=== PATIENT | male | born 1935 | race Caucasian/White ===

== ENCOUNTER 2017-06-13 19:47 | Emergency (ER) | payer MEDICARE, OTHER ==
[2016-04-13 16:22] VITALS: Wt 99.8 kg
[~2017-06-13 19:47] MED LIST: ACET-2007 PO; ACET-2031 PO; ALB18R INH; ALBU8.5H IH; AMIN30LI PO; AMLO2.5T74 PO; ASCO-182 PO; ASCO-440 PO; ASP81 PO; ASPI-870 PO; AZIT-1 PO; BET25 PO; CALC-949 PO; CALC600T72 PO; CEP500 PO; CEPH-13 PO; CEPH500C24 PO; CEPH500T7 PO; CIP500 PO; CITA-137 PO; CLO10 PO; DEXT1DRO15 OP; DOC100 PO; DOCU-416 PO; ERTA1VIA IVPB; ESC10 PO; FAM20 PO; FAMO20TA28 PO; FLU IM; FLUC100T35 PO; FLUC100T39 PO; FOLI-48 PO; HYDR-385 PO; IBUP-1671 PO; LEVO75TA73 PO; LEVO88TA42 PO; LIS10 PO; LISI5TAB25 PO; LOR1 PO; LOR5/325 PO; MAG-66 PO; MELA10TA7 PO; MELA1TAB9 PO; METO-218 PO; METO-253 PO; METO-257 PO; METO25TA93 PO; METO50TA PO; MUPI15CR10 TP; NABU-183 PO; NIT50 PO; NITR50CA35 PO; NYST15CR33 TP; NYST15PO4 TP; OMEG500C7 PO; OMEP-125 PO; OMEP-137 PO; OMEP-218 PO; OXYC5TAB38 PO; OXYGENHOME INH; PANT40TA65 PO; PHEN28OI TD; PHENA200 PO; PHYT100T4 PO; PNEU0.5D3 IM; POLY15DR5 OU; POLY500P2 PO; PRED1DRO2 OS; PRED20TA6 PO; PRED5DRO34 OP; ROP5 PO; ROPI0.5T25 PO; SERT-184 PO; TAM4 PO; TAMS0.4C70 PO; VALA500T63 PO; VALA500T66 PO; WARF-1 PO; WARF2.5T62 PO; WARF5TAB23 PO; [UNRECOGNIZED DRUG - CODE] OP; [UNRECOGNIZED DRUG - CODE] PO
--- NOTE | 2017-06-13 20:02 | ER Report ---
History and Physical Time Seen By : 20:02 HPI/ROS CHIEF COMPLAINT: Hematuria HISTORY OF PRESENT ILLNESS: 82-year-old male patient presents to emergency room with complaint of hematuria. Patient states that he's been having bleeding in his catheter bag that he noticed this morning when he got up. He states that it seemed to clear up throughout the day, and then this evening it seemed to get worse again. Patient states that he is also not been feeling well, has had some pressure type of discomfort around his rectum. He stated that it was worse after he had a bowel movement this morning, however after he had a bowel movement this afternoon there is no change. Patient denies having any fevers, chills. He states that he has not changed his medications any. Patient is currently taking warfarin, this been taking that as directed. Patient states he has had some back pain, however that his been no different than his normal chronic back pain. REVIEW OF SYSTEMS: Respiratory: No cough, no dyspnea. Cardiovascular: No chest pain, no palpitations. Gastrointestinal: As noted above Musculoskeletal: No back pain. Allergies: Coded Allergies: pineapple (Verified Allergy, Unknown, UNKNOWN, 06/13/17) Home Meds Active Scripts Sulfamethoxazole/Trimet 800-160 Mg Tab (BACTRIM DS TABLET) 1 Each Tablet, 1 TAB PO Q12H, #14 TAB Prov:JAMARI HEIN 06/13/17 Valacyclovir Hcl (VALACYCLOVIR) 500 Mg Tablet, 500 MG PO QAM, #90 TAB 4 Refills Prov:ZEESHAN ANDREWS MD 05/16/17 Sertraline Hcl (SERTRALINE HCL) 50 Mg Tablet, 1 TAB PO QDAY, #90 TAB 1 Refill Prov:ZEESHAN ANDREWS MD 03/21/17 Levothyroxine Sodium (LEVOTHYROXINE SODIUM) 75 Mcg Tablet, 1 TAB PO QDAY, #90 TAB 4 Refills Prov:ZEESHAN ANDREWS MD 03/09/17 Omeprazole (OMEPRAZOLE) 20 Mg Capsule., 1 CAP PO QDAY, #90 CAP 1 Refill Prov:ZEESHAN ANDREWS MD 02/03/17 Nystatin 100,000 Unit/Gm Top Powder (NYSTATIN 100,000 UNIT/GM TOP POWDER) 15 Gm Powder, 1 RICCI TP BID, #60 G 2 Refills Prov:ZEESHAN ANDREWS MD 01/18/17 Warfarin Sodium (COUMADIN) 5 Mg Tablet, 5 MG PO M,,,F,Sa, #90 TAB 2 Refills Prov:ZESEHAN ANDREWS MD 11/15/16 Warfarin Sodium (COUMADIN) 2.5 Mg Tablet, 2.5 MG PO Mon and Mon, #30 TAB 3 Refills Prov:ZEESHAN ANDREWS MD 11/15/16 Mupirocin Calcium (BACTROBAN) 15 Gm Cream..g., 0 TP BID for 10 Days, #15 GM 1 Refill Prov:ZEESHAN ANDREWS MD 09/29/16 Metoprolol Tartrate (METOPROLOL TARTRATE) 25 Mg Tablet, 1 TAB PO QHS, #90 TAB 2 Refills Prov:ZEESHAN ANDREWS MD 07/13/16 Prednisolone Acetate (PRED FORTE) 1 Ml Drops.susp, 1 GTT OS QODAY, #1 BOT 3 Refills Prov:ZEESHAN ANDREWS MD 06/08/16 Ropinirole Hcl (ROPINIROLE HCL) 0.5 Mg Tablet, 0.5 MG PO HS, #90 TAB 2 Refills Prov:ZEESHAN ANDREWS MD 06/08/16 Tamsulosin Hcl (TAMSULOSIN HCL) 0.4 Mg Cap.er.24h, 1 CAP PO QHS, #90 CAP 3 Refills Prov:ZEESHAN ANDREWS MD 06/08/16 Oxygen (OXYGEN) Inha, 1.5-3 L INH cont, #0 L Prov:MARK SIMPSON MD 09/14/15 Reported Medications Phytonadione (VITAMIN K) 100 Mcg Tablet, 10 MG PO ONCE Called into pharm on 06-28-16 10mg PO once 06/28/16 Dextran 70/Hypromellose (ARTIFICIAL TEARS) 1 Each Droperette, 1 EACH OP BID 01/04/16 Polyethylene Glycol 8000 (POLYETHYLENE GLYCOL) 500 Gm Powder, 8.5 GM PO MON, WED , Mon01/04/16 Past Medical/Surgical History Patient has a past medical history of CVA, blindness in the right eye, hypertension, hyperlipidemia, bronchitis, COPD, reflux, frequent UTI, enlarged prostate, arthritis, fracture to thumb, shoulder, back pain, dentures, hypothyroidism, skin cancer, alcohol use, depression, VRE in urine. Patient has a surgical history of hernia repair, cystoscopy, TURP, back surgery , tonsillectomy, surgery on his mastoid. Patient has a family medical history of cancer, CAD, stroke. Reviewed Nurses Notes: Yes Hx Smoking: No (quit in 1987) Smoking Status: Former Smoker Exposure to Second Hand Smoke?: No Hx Substance Use Disorder: No Hx Alcohol Use: Yes (OCC) Constitutional Vital Sign - Last 24 Hours 06/13/17 06/13/17 06/13/17 06/13/17 20:01 20:05 20:15 20:30 Temp 98.6 Pulse 68 71 66 Resp 14 28 14 B/P (MAP) 181/77 165/82 (109) Pulse Ox 98 99 100 O2 Flow Rate 3.0 06/13/17 06/13/17 06/13/17 06/13/17 20:45 21:00 21:15 21:30 Pulse 77 76 111 ??? Resp 33 26 23 55 B/P (MAP) 191/99 (129) 182/123 (142) Pulse Ox 100 100 92 06/13/17 22:00 Pulse ??? B/P (MAP) ???/??? (1665) Physical Exam General Appearance: The patient is alert, has no immediate need for airway protection and no current signs of toxicity. Respiratory: Chest is non tender, lungs are clear to auscultation. Cardiac: regular rate and rhythm Gastrointestinal: Abdomen is soft and tender in lower abdomen, no masses, bowel sounds normal. Patient had no obvious tenderness around the rectum. : Patient has significant amount of blood draining around the catheter, also has significant amounts of blood in the urine in the catheter 2. Musculoskeletal: Neck: Neck is supple and non tender. Extremities have full range of motion and are non tender. Skin: No rashes or lesions. DIFFERENTIAL DIAGNOSIS: After history and physical exam differential diagnosis was considered for UTI, hypercoagulable, trauma to bladder. Medical Decision Making Data Points Result Diagram: 06/13/17201606/13/172016 Laboratory Hematology Test 06/13/17 20:17 06/13/17 20:34 Red Blood Count 4.19 M/uL (4.00-5.60) Mean Corpuscular Volume 92.2 fL (80.0-96.0) Mean Corpuscular Hemoglobin 30.6 pg (26.0-33.0) Mean Corpuscular Hemoglobin Concent 33.2 g/dL (32.0-36.0) Red Cell Distribution Width 15.8 % (11.5-14.5) Mean Platelet Volume 8.3 fL (7.2-11.1) Neutrophils (%) (Auto) 57.9 % (39.4-72.5) Lymphocytes (%) (Auto) 30.1 % (17.6-49.6) Monocytes (%) (Auto) 7.3 % (4.1-12.4) Eosinophils (%) (Auto) 3.3 % (0.4-6.7) Basophils (%) (Auto) 1.4 % (0.3-1.4) Nucleated RBC Relative Count (auto) 0.0 /100WBC Neutrophils # (Auto) 5.3 K/uL (2.0-7.4) Lymphocytes # (Auto) 2.7 K/uL (1.3-3.6) Monocytes # (Auto) 0.7 K/uL (0.3-1.0) Eosinophils # (Auto) 0.3 K/uL (0.0-0.5) Basophils # (Auto) 0.1 K/uL (0.0-0.1) Nucleated RBC Absolute Count (auto) 0.00 K/uL Peripheral Blood Smear Yes Y/N Prothrombin Time 25.7 seconds (12.0-14.4) Prothromb Time International Ratio 2.26 Sodium Level 137 mmol/L (137-145) Potassium Level 4.2 mmol/L (3.5-5.0) Chloride Level 97 mmol/L (98-107) Carbon Dioxide Level 28 mmol/L (22-30) Blood Urea Nitrogen 22 mg/dl (9-21) Creatinine 1.40 mg/dl (0.66-1.25) Glomerular Filtration Rate Calc 48.5 Random Glucose 101 mg/dl (75-110) Calcium Level 9.2 mg/dl (8.4-10.2) Total Bilirubin 0.3 mg/dl (0.2-1.3) Aspartate Amino Transf (AST/SGOT) 15 U/L (0-35) Alanine Aminotransferase (ALT/SGPT) 13 U/L (0-56) Alkaline Phosphatase 90 U/L (0-126) Total Protein 7.1 gm/dl (6.3-8.2) Albumin 3.5 g/dl (3.5-5.0) Urine Color Red Urine Clarity Turbid Urine pH 6.0 pH (4.8-9.5) Urine Specific [place] 1.023 Urine Protein 30 mg/dL (NEGATIVE) Urine Glucose (UA) Negative mg/dL (NEGATIVE) Urine Ketones Negative mg/dL (NEGATIVE) Urine Blood Moderate (NEGATIVE) Urine Nitrite Negative (NEGATIVE) Urine Bilirubin Negative (NEGATIVE) Urine Urobilinogen 4.0 mg/dL (0.2-1.9) Urine Leukocyte Esterase Trace (NEGATIVE) Urine RBC 06830 /HPF (0-2/HPF) Urine WBC 101 /HPF (0-5/HPF) Urine WBC Clumps Many /HPF Urine Squamous Epithelial Cells None /LPF (NONE-FEW) Urine Bacteria Negative /HPF (NONE-FEW) Urine Mucus None /HPF (NONE-FEW) Chemistry Test 06/13/17 20:17 06/13/17 20:34 White Blood Count 9.1 k/uL (4.5-11.0) Red Blood Count 4.19 M/uL (4.00-5.60) Hemoglobin 12.8 g/dL (14.0-18.0) Hematocrit 38.7 % (42.0-52.0) Mean Corpuscular Volume 92.2 fL (80.0-96.0) Mean Corpuscular Hemoglobin 30.6 pg (26.0-33.0) Mean Corpuscular Hemoglobin Concent 33.2 g/dL (32.0-36.0) Red Cell Distribution Width 15.8 % (11.5-14.5) Platelet Count 201 K/uL (150-450) Mean Platelet Volume 8.3 fL (7.2-11.1) Neutrophils (%) (Auto) 57.9 % (39.4-72.5) Lymphocytes (%) (Auto) 30.1 % (17.6-49.6) Monocytes (%) (Auto) 7.3 % (4.1-12.4) Eosinophils (%) (Auto) 3.3 % (0.4-6.7) Basophils (%) (Auto) 1.4 % (0.3-1.4) Nucleated RBC Relative Count (auto) 0.0 /100WBC Neutrophils # (Auto) 5.3 K/uL (2.0-7.4) Lymphocytes # (Auto) 2.7 K/uL (1.3-3.6) Monocytes # (Auto) 0.7 K/uL (0.3-1.0) Eosinophils # (Auto) 0.3 K/uL (0.0-0.5) Basophils # (Auto) 0.1 K/uL (0.0-0.1) Nucleated RBC Absolute Count (auto) 0.00 K/uL Peripheral Blood Smear Yes Y/N Prothrombin Time 25.7 seconds (12.0-14.4) Prothromb Time International Ratio 2.26 Glomerular Filtration Rate Calc 48.5 Calcium Level 9.2 mg/dl (8.4-10.2) Total Bilirubin 0.3 mg/dl (0.2-1.3) Aspartate Amino Transf (AST/SGOT) 15 U/L (0-35) Alanine Aminotransferase (ALT/SGPT) 13 U/L (0-56) Alkaline Phosphatase 90 U/L (0-126) Total Protein 7.1 gm/dl (6.3-8.2) Albumin 3.5 g/dl (3.5-5.0) Urine Color Red Urine Clarity Turbid Urine pH 6.0 pH (4.8-9.5) Urine Specific [place] 1.023 Urine Protein 30 mg/dL (NEGATIVE) Urine Glucose (UA) Negative mg/dL (NEGATIVE) Urine Ketones Negative mg/dL (NEGATIVE) Urine Blood Moderate (NEGATIVE) Urine Nitrite Negative (NEGATIVE) Urine Bilirubin Negative (NEGATIVE) Urine Urobilinogen 4.0 mg/dL (0.2-1.9) Urine Leukocyte Esterase Trace (NEGATIVE) Urine RBC 55162 /HPF (0-2/HPF) Urine WBC 101 /HPF (0-5/HPF) Urine WBC Clumps Many /HPF Urine Squamous Epithelial Cells None /LPF (NONE-FEW) Urine Bacteria Negative /HPF (NONE-FEW) Urine Mucus None /HPF (NONE-FEW) Coagulation Test 06/13/17 20:17 Prothrombin Time 25.7 seconds Prothromb Time International Ratio 2.26 Urinalysis Test 06/13/17 20:34 Urine Color Red Urine Clarity Turbid Urine pH 6.0 pH (4.8-9.5) Urine Specific [place] 1.023 Urine Protein 30 mg/dL (NEGATIVE) Urine Glucose (UA) Negative mg/dL (NEGATIVE) Urine Ketones Negative mg/dL (NEGATIVE) Urine Blood Moderate (NEGATIVE) Urine Nitrite Negative (NEGATIVE) Urine Bilirubin Negative (NEGATIVE) Urine Urobilinogen 4.0 mg/dL (0.2-1.9) Urine Leukocyte Esterase Trace (NEGATIVE) Urine RBC 99995 /HPF (0-2/HPF) Urine WBC 101 /HPF (0-5/HPF) Urine WBC Clumps Many /HPF Urine Squamous Epithelial Cells None /LPF (NONE-FEW) Urine Bacteria Negative /HPF (NONE-FEW) Urine Mucus None /HPF (NONE-FEW) EKG/Imaging Imaging EXAMINATION: CT abdomen and pelvis with IV contrast HISTORY: Hematuria. Abdominal pain. TECHNIQUE: Axial CT images of the abdomen and pelvis were obtained with IV contrast, with coronal and sagittal 2D reconstructed images. One of the following dose optimization techniques was utilized in the performance of this exam: Automated exposure control; adjustment of the mA and/ or kV according to the patient's size; or use of an iterative reconstruction technique. Specific details can be referenced in the facility's radiology CT exam operational policy. Contrast: 75 mL of IV Isovue-370. COMPARISON: 04/13/2016. FINDINGS: Liver: Stable 1.2 cm hypodensity in the posterior right hepatic lobe, likely a small cyst. Gallbladder and bile ducts: Small stones layering in the dependent gallbladder. No CT evidence of cholecystitis. No bile duct dilatation. Spleen: Negative. Pancreas: Negative. Adrenal glands: Negative. Kidney/ureter/bladder: Normal size and morphology of both kidneys, with normal parenchymal enhancement. Small bilateral renal cysts. There is mild symmetric hydronephrosis of both kidneys, with mild dilatation of both ureters. No ureteral calculus. The urinary bladder is moderately distended. Mild diffuse bladder wall thickening. A Berkowitz catheter is present and malpositioned, with the retention balloon located at the level of the prostatic urethra. Small amount of hyperdense material in the lower bladder may represent a small blood clot. This measures 2.0 x 2.7 x 2.1 cm. Bowel and peritoneum: The small bowel and colon are normal in caliber. No bowel obstruction. There are few scattered colonic diverticula, without evidence of diverticulitis. Normal appendix in the right lower abdomen. No free fluid or free intraperitoneal air. Stable CT appearance of a densely calcified mass along the central mesentery, measuring approximately 1.9 x 6.5 cm. Lymph node assessment: No enlarged noncalcified lymph nodes in the abdomen or pelvis. Vessels: Moderate vascular calcifications. Normal caliber abdominal aorta. Musculoskeletal: No acute osseous findings. Multilevel degenerative changes throughout the spine. Chronic bilateral L5 spondylolysis, with stable grade 1 spondylolisthesis of L5 on S1. Posterior laminectomy defects at L4 and L5. Body wall: Negative. Lung bases: Mild scarring in the lung bases. Stable calcified pleural plaques. IMPRESSION: 1. Malpositioned Berkowitz catheter. The inflated retention balloon is located at the level of the prostatic urethra. Should be repositioned. 2. There is a new small amount of hyperdense material in the lower bladder, measuring up to 2.7 cm. This may represent a small blood clot in the bladder. A bladder mass is considered less likely. 3. Mild diffuse bladder wall thickening may relate to chronic bladder outlet obstruction or could be compatible with a superimposed cystitis. There is mild symmetric hydronephrosis of both kidneys. 4. No other new intra-abdominal findings. 5. Cholelithiasis. 6. Colonic diverticulosis, without evidence of diverticulitis. Stable densely calcified soft tissue mass along the central mesentery. Report Dictated By: Mani Robertson MD at 06/13/2017 10:28 PM Report E-Signed By: Mani Robertson MD at 06/13/2017 10:45 PM ED Course/Re-evaluation ED Course Patient was admitted to an exam room, history and physical were obtained. Differential diagnoses were considered. On examination patient has tenderness in the abdomen, markedly hematuria, blood bruising around his catheter. Patient has tenderness around his rectum. A CBC, CMP, urinalysis, coag studies were done. Patient did have an INR of 2.26, white count was normal, H&H was stable, patient did have an elevated creatinine at 1.4. Patient had significant amounts of hematuria, 60,000 red blood cells per high-power field, also had 101 white blood cells per high-power field. A urine culture was ordered. A CT scan of the abdomen and pelvis was done. CT scan shows that the urinary catheter is malpositioned with the balloon sitting at the prostatic sphincter, also has thickening of the wall which could be consistent with a acute cystitis as well as chronic urinary retention. The Berkowitz catheter was readjusted and the patient had significant improvement in his pain. The catheter was also draining restraining a blood-tinged urine. He was no longer oozing around the catheter site. I discussed the case with Dr. Mccain [facility]. I advised felt the patient did not need to be admitted as there is no intervention that they were going to do. I discussed this with the patient, patient states that he does feel good about going home stating that he does feel significantly improved. I discussed this with his son who verbalized understanding and agreement. He did return to the emergency room to pick him up. He is to return to emergency room if condition worsens. He states increase fluid intake. He is to follow-up with his primary care provider in the next 3 days. I would like him to hold his Coumadin for the next 3 days as well. Patient verbalized understanding and agreement with plan. Decision to Disposition Date: June 13, 2017 Decision to Disposition Time: 23:18 Depart Departure Latest Vital Signs Vital Signs Date Time Temp Pulse Resp B/P (MAP) Pulse Ox O2 Delivery O2 Flow Rate FiO2 06/13/17 22:00 ?/??? (1665) 06/13/17 21:30 55 06/13/17 21:15 92 06/13/17 20:05 3.0 06/13/17 20:01 98.6 Impression: Primary Impression: Hematuria Additional Impressions: UTI (urinary tract infection) Dislodged Berkowitz catheter Condition: Improved Disposition: HOME OR SELF-CARE Referrals: LEON AGUILERA MD (PCP) [facility] Scripts Sulfamethoxazole/Trimet 800-160 Mg Tab (BACTRIM DS TABLET) 1 Each Tablet 1 TAB PO Q12H, #14 TAB Prov: JAMARI HEIN PHOTOGRAPHER MODEL 06/13/17 Patient Instructions: Hematuria (ED) Additional Instructions: Increase fluid intake. Get plenty of rest. Protect the catheter from being pulled on. Take the antibiotics as directed. Limit activity by pain. Follow up with Dr. Chou this week. Return to the ER if condition worsens. Hold your Coumadin for the next 3 days. Problem Qualifiers Primary Impression: Hematuria Hematuria type: gross Qualified Codes: R31.0 - Gross hematuria Additional Impressions: UTI (urinary tract infection) Urinary tract infection type: acute cystitis Hematuria presence: with hematuria Qualified Codes: N30.01 - Acute cystitis with hematuria Dislodged Berkowitz catheter Encounter type: initial encounter Qualified Codes: T83.021A - Displacement of indwelling urethral catheter, initial encounter JAMARI HEIN June 13, 2017 20:02
[2017-06-13 20:25] LABS: PLATELET COUNT, AUTOMATED 201 K/uL (150-450)
[2017-06-13 20:37] LABS: INR 2.26
[2017-06-13] MEDS ORDERED: MORPHINE 4 MG/ML SDV IVP ONE ×2 (21:10→23:00)
[2017-06-13] MEDS ORDERED: NS(*) 0.9% 1000 ML BAG 1,000 ML IV ONE (21:15)
[2017-06-13] MEDS ORDERED: IOPAMIDOL 76% 75 ML INFUS BTL 75 ML ONE (21:44)
--- NOTE | 2017-06-13 22:50 | RADIOLOGY IMAGING REPORT ---
FACILITY: [facility] [place] PATIENT NAME: Tj Shaw : 1935 MR: [id number] V: [id number] EXAM DATE: ORDERING PHYSICIAN: JAMARI HEIN TECHNOLOGIST: [place] [facility] [place]j [place] : 1935 Visit/Account:[id number] Date of Sevice: 06/13/2017 EXAMINATION: CT abdomen and pelvis with IV contrast HISTORY: Hematuria. Abdominal pain. TECHNIQUE: Axial CT images of the abdomen and pelvis were obtained with IV contrast, with coronal a nd sagittal 2D reconstructed images. One of the following dose optimization techniques was utilized in the performance of this exam: Autom ated exposure control; adjustment of the mA and/or kV according to the patient's size; or use of an i terative reconstruction technique. Specific details can be referenced in the facility's radiology C T exam operational policy. Contrast: 75 mL of IV Isovue-370. COMPARISON: 04/13/2016. FINDINGS: Liver: Stable 1.2 cm hypodensity in the posterior right hepatic lobe, likely a small cyst. Gallbladder and bile ducts: Small stones layering in the dependent gallbladder. No CT evidence of ch olecystitis. No bile duct dilatation. Spleen: Negative. Pancreas: Negative. Adrenal glands: Negative. Kidney/ureter/bladder: Normal size and morphology of both kidneys, with normal parenchymal enhanceme nt. Small bilateral renal cysts. There is mild symmetric hydronephrosis of both kidneys, with mild di latation of both ureters. No ureteral calculus. The urinary bladder is moderately distended. Mild diffuse bladder wall thickening. A Berkowitz catheter i s present and malpositioned, with the retention balloon located at the level of the prostatic urethra . Small amount of hyperdense material in the lower bladder may represent a small blood clot. This sy sures 2.0 x 2.7 x 2.1 cm. Bowel and peritoneum: The small bowel and colon are normal in caliber. No bowel obstruction. There a re few scattered colonic diverticula, without evidence of diverticulitis. Normal appendix in the righ t lower abdomen. No free fluid or free intraperitoneal air. Stable CT appearance of a densely calcifi ed mass along the central mesentery, measuring approximately 1.9 x 6.5 cm. Lymph node assessment: No enlarged noncalcified lymph nodes in the abdomen or pelvis. Vessels: Moderate vascular calcifications. Normal caliber abdominal aorta. Musculoskeletal: No acute osseous findings. Multilevel degenerative changes throughout the spine. C hronic bilateral L5 spondylolysis, with stable grade 1 spondylolisthesis of L5 on S1. Posterior jan ectomy defects at L4 and L5. Body wall: Negative. Lung bases: Mild scarring in the lung bases. Stable calcified pleural plaques. IMPRESSION: 1. Malpositioned Berkowitz catheter. The inflated retention balloon is located at the level of the prosta tic urethra. Should be repositioned. 2. There is a new small amount of hyperdense material in the lower bladder, measuring up to 2.7 cm. T his may represent a small blood clot in the bladder. A bladder mass is considered less likely. 3. Mild diffuse bladder wall thickening may relate to chronic bladder outlet obstruction or could be compatible with a superimposed cystitis. There is mild symmetric hydronephrosis of both kidneys. 4. No other new intra-abdominal findings. 5. Cholelithiasis. 6. Colonic diverticulosis, without evidence of diverticulitis. Stable densely calcified soft tissue m ass along the central mesentery. Report Dictated By: Mani Robertson MD at 06/13/2017 10:28 PM Report E-Signed By: Mani Robertson MD at 06/13/2017 10:45 PM WSN:[id number]
[2017-06-13 23:00] VITALS: BP 166/87
[2017-06-13] MEDS ORDERED: SULF-198 PO (23:18)
[2017-06-13] MEDS ORDERED: TRIMETHOPRIM/SULFA 160-800 TH 2 TAB/BOTTLE PO ONE (23:20)
== END 2017-06-14 00:13 | disposition home or self-care (01) ==
LOC: ER 20:21
DX: N30.01 Acute cystitis with hematuria (principal); T83.021A Displacement of indwelling urethral catheter, initial encounter; R31.0 Gross hematuria
CPT/HCPCS: 74177; 81001; 85025; 85610; 87088; 96361; 96374; 96375; 99284; J2270; J7030; Q9967; 82040; 82247; 82310; 82374; 82435; 82565; 82947; 84075; 84132; 84155; 84295; 84450; 84460; 84520

== ENCOUNTER → 2017-06-28 | Outpatient (CLI) | payer MEDICARE, OTHER ==
[2016-04-13 16:22] VITALS: BMI 29.2
[~2017-06-28] MED LIST changes: +SULF-198 PO
[2017-06-28 13:28] LABS: PLATELET COUNT, AUTOMATED 226 K/uL (150-450)
== END ==
LOC: LAB 13:11
PROVIDERS: ATTEND Internal Medicine
DX: T83.021A Displacement of indwelling urethral catheter, initial encounter (principal); N39.0 Urinary tract infection, site not specified; R31.9 Hematuria, unspecified; I48.91 Unspecified atrial fibrillation; J44.9 Chronic obstructive pulmonary disease, unspecified; D64.9 Anemia, unspecified; I10 Essential (primary) hypertension
CPT/HCPCS: 36415; 82040; 82247; 82310; 82374; 82435; 82565; 82947; 84075; 84132; 84155; 84295; 84443; 84450; 84460; 84520; 85025

== ENCOUNTER → 2017-08-25 | Outpatient (CLI) | payer MEDICARE, OTHER ==
[2016-04-13 16:22] VITALS: BMI 29.2
[2017-08-25 15:09] LABS: INR 2.52
== END ==
LOC: LAB 14:45
PROVIDERS: ATTEND Internal Medicine
DX: I48.91 Unspecified atrial fibrillation (principal)
CPT/HCPCS: 36415; 85610

== ENCOUNTER → 2017-09-15 | Outpatient (CLI) | payer MEDICARE, OTHER ==
[2016-04-13 16:22] VITALS: BMI 29.2
[2017-09-15 14:07] LABS: INR 2.68
== END ==
LOC: LAB 13:46
PROVIDERS: ATTEND Internal Medicine
DX: I48.91 Unspecified atrial fibrillation (principal)
CPT/HCPCS: 36415; 85610

== ENCOUNTER → 2017-09-29 | Outpatient (CLI) | payer MEDICARE, OTHER ==
[2016-04-13 16:22] VITALS: BMI 29.2
[~2017-09-29] MED LIST changes: +[UNRECOGNIZED DRUG - OTHER]
[2017-09-29 13:54] LABS: INR 3.1
== END ==
LOC: LAB 13:05
PROVIDERS: ATTEND Nurse Practitioner Family
DX: I48.91 Unspecified atrial fibrillation (principal)
CPT/HCPCS: 36415; 85610

== ENCOUNTER 2017-10-01 14:17 | Emergency (ER) | payer MEDICARE, OTHER ==
[2016-04-13 16:22] VITALS: Wt 96.2 kg
[~2017-10-01 14:17] MED LIST changes: -[UNRECOGNIZED DRUG - OTHER]
[2017-10-01] MEDS ORDERED: [UNRECOGNIZED DRUG - OTHER] (14:42)
--- NOTE | 2017-10-01 15:02 | ER Report ---
History and Physical Time Seen By MD: 14:57 Hx. of Stated Complaint: BLOOD IN URINE HPI/ROS CHIEF COMPLAINT: Blood in urine HISTORY OF PRESENT ILLNESS: This is an 82-year-old male who presents to the emergency department for blood in his urine. Patient has had incontinence for the last to 3 years, has a home health nurse has placed Berkowitz catheters for the past couple of years. Patient states that occasionally he does end up with some blood in his urine, secondary to catching either his foot or some other object on his catheter and pulling the tubing. Patient states that he feels that this is what happened possibly last night. He states that this morning he woke up and there was some blood in his catheter bag him it did clear up and then began again this afternoon. Patient does have some discomfort at the tip of the penis however that is resolving as well as some mild discomfort to the bladder area. Patient denies fevers or chills. No nausea or vomiting. He does state that he has had some mild overall ill feelings however nothing "concerning". Patient states the last time that this happened he did come to the emergency department, they deflated the balloon and advanced the catheter and the urine cleared. REVIEW OF SYSTEMS: Respiratory: No cough, no dyspnea. Cardiovascular: No chest pain, no palpitations. Gastrointestinal: No vomiting, no abdominal pain. Musculoskeletal: No back pain. Genitourinary: As above. Allergies: Coded Allergies: pineapple (Verified Allergy, Unknown, UNKNOWN, 10/01/17) Home Meds Active Scripts Sertraline Hcl (SERTRALINE HCL) 50 Mg Tablet, 1 TAB PO QDAY, #90 TAB 1 Refill Prov:ZEESHAN ANDREWS MD 09/15/17 Albuterol Sulfate (VENTOLIN HFA) 18 Gm Inh, 2 PUFF INH Q6H PRN for SHORTNESS OF BREATH, #1 INH 4 Refills Prov:ZEESHAN ANDREWS MD 08/04/17 Omeprazole (OMEPRAZOLE) 20 Mg Capsule.dr, 1 CAP PO QDAY, #90 CAP 4 Refills Prov:ZEESHAN ANDREWS MD 08/03/17 Ropinirole Hcl (ROPINIROLE HCL) 0.5 Mg Tablet, 0.5 MG PO HS, #90 TAB 1 Refill Prov:ZEESHAN ANDREWS MD 07/05/17 Tamsulosin Hcl (TAMSULOSIN HCL) 0.4 Mg Cap.er.24h, 1 CAP PO QHS, #90 CAP 3 R efills Prov:ZEESHAN ANDREWS MD 06/29/17 Warfarin Sodium (COUMADIN) 5 Mg Tablet, 5 MG PO M,,,F,Sa, #90 TAB 1 Refill Prov:ZEESHAN ANDREWS MD 06/21/17 Warfarin Sodium (COUMADIN) 2.5 Mg Tablet, 2.5 MG PO Mon and Mon, #90 TAB 1 Refill Prov:ZEESHAN ANDREWS MD 06/21/17 Valacyclovir Hcl (VALACYCLOVIR) 500 Mg Tablet, 500 MG PO QAM, #90 TAB 4 Refills Prov:ZEESHAN ANDREWS MD 05/16/17 Levothyroxine Sodium (LEVOTHYROXINE SODIUM) 75 Mcg Tablet, 1 TAB PO QDAY, #90 TAB 4 Refills Prov:ZEESHAN ANDREWS MD 03/09/17 Nystatin 100,000 Unit/Gm Top Powder (NYSTATIN 100,000 UNIT/GM TOP POWDER) 15 Gm Powder, 1 RICCI TP BID, #60 G 2 Refills Prov:ZEESHAN ANDREWS MD 01/18/17 Metoprolol Tartrate (METOPROLOL TARTRATE) 25 Mg Tablet, 1 TAB PO QHS, #90 TAB 2 Refills Prov:ZEESHAN ANDREWS MD 07/13/16 Oxygen (OXYGEN) Inha, 1.5-3 L INH cont, #0 L Prov:MARK SIMPSON MD 09/14/15 Reported Medications [Alarex] No Conflict Check 10/01/17 Dextran 70/Hypromellose (ARTIFICIAL TEARS) 1 Each Droperette, 1 EACH OP BID 01/04/16 Polyethylene Glycol 8000 (POLYETHYLENE GLYCOL) 500 Gm Powder, 8.5 GM PO MON, WED, FRI 01/04/16 Discontinued Scripts Prednisolone Acetate (PRED FORTE) 1 Ml Drops.susp, 1 GTT OS QODAY, #1 BOT 3 Refills Prov:ZEESHAN ANDREWS MD 06/08/16 Past Medical/Surgical History The patient has a past medical and surgical history of blind in the right eye, hypertension, COPD, continuous oxygen use, bronchitis, mass and abdomen removed, GERD, urinary incontinence, arthritis, thumb fracture, left shoulder fracture, chronic back pain, dentures, wears glasses, hard of hearing, VRE, skin cancer on nose excised, hypothyroidism, anxiety, umbilical hernia repair, cystoscopy, TU RP, laminectomy, tonsillectomy. Reviewed Nurses Notes: Yes Hx Smoking: No (quit in 1987) Smoking Status: Former Smoker Exposure to Second Hand Smoke?: No Hx Substance Use Disorder: No Hx Alcohol Use: Yes (OCC) Constitutional Vital Sign - Last 24 Hours 10/01/17 10/01/17 10/01/17 10/01/17 14:34 14:37 14:37 14:57 Temp 98.5 Pulse 72 71 72 Resp 12 B/P (MAP) 139/71 (93) 139/71 Pulse Ox 98 99 O2 Delivery Nasal Cannula Nasal Cannula O2 Flow Rate 2.5 10/01/17 10/01/17 10/01/17 10/01/17 15:00 15:17 15:30 15:37 Pulse 64 67 B/P (MAP) 133/66 (88) 172/77 (108) Pulse Ox 98 97 O2 Delivery Nasal Cannula Nasal Cannula O2 Flow Rate 2.5 2.5 10/01/17 10/01/17 15:57 16:02 Pulse 64 66 Pulse Ox 98 98 O2 Delivery Nasal Cannula Nasal Cannula O2 Flow Rate 2.5 2.5 Physical Exam General Appearance: The patient is alert, has no immediate need for airway protection and no current signs of toxicity. Eyes: Pupils equal and round no injection. Respiratory: Chest is non tender, lungs are clear to auscultation. Cardiac: regular rate and rhythm. Gastrointestinal: Abdomen is soft and non tender, no masses, bowel sounds normal. Genitourinary: Hypospadias urethra, several clots noted at the tip of the penis however there is no erythema or signs of infection around the catheter site. Hematuria with clots. Musculoskeletal: Neck: Neck is supple and non tender. Extremities have full range of motion and are non tender. Skin: No rashes or lesions. DIFFERENTIAL DIAGNOSIS: After history and physical exam differential diagnosis was considered for hematuria secondary to bladder irritation. Medical Decision Making ED Course/Re-evaluation ED Course The patient was admitted to room. A history and physical obtained. Differential diagnoses were considered. The bladder was irrigated, the catheter balloon was deflated and advanced, upon doing this the patient had immediate relief of his discomfort, the blood began to clear, patient states he feels much better and is ready to go home. Upon discharge the patient had clear urine, and new Berkowitz bag was provided. Patient was instructed to follow-up with Dr. Brown within 1 week for reevaluation. Return to the ER for any other concerns or worsening symptoms. Patient was in agreement with this plan of care and discharged home. Decision to Disposition Date: Oct 01, 2017 Decision to Disposition Time: 16:25 Depart Departure Latest Vital Signs Vital Signs Date Time Temp Pulse Resp B/P (MAP) Pulse Ox O2 Delivery O2 Flow Rate FiO2 10/01/17 16:02 66 98 Nasal Cannula 2.5 10/01/17 15:30 172/77 (108) 10/01/17 14:37 98.5 12 Impression: Primary Impression: Hematuria Additional Impression: Dislodged Berkowitz catheter Condition: Improved Disposition: HOME OR SELF-CARE Referrals: ZEESHAN ANDREWS MD (PCP) LUCY BROWN MD 1 Week Patient Instructions: Berkowitz Catheter Placement and Care (ED) Additional Instructions: Continue to drink plenty of fluids. Get plenty of rest. Continue to monitor the urine output, she have any other discomfort or increased blood in the urine return to the emergency department for reevaluation. Follow-up with your primary care provider as scheduled. Follow-up with Dr. Brown within 1 week for reevaluation. Return to the ER for any other concerns or worsening symptoms. Problem Qualifiers Primary Impression: Hematuria Hematuria type: gross Qualified Codes: R31.0 - Gross hematuria Additional Impression: Dislodged Berkowitz catheter Encounter type: initial encounter Qualified Codes: T83.021A - Displacement of indwelling urethral catheter, initial encounter STEPHEN VILLALTAP-BC Oct 01, 2017 15:02
[2017-10-01 15:30] VITALS: BP 172/77
== END 2017-10-01 16:38 | disposition home or self-care (01) ==
LOC: ER 14:35
DX: R31.9 Hematuria, unspecified (principal)
CPT/HCPCS: 99283

== ENCOUNTER 2017-10-04 17:39 | Emergency (ER) | payer MEDICARE, OTHER ==
[2016-04-13 16:22] VITALS: Wt 95.7 kg
[~2017-10-04 17:39] MED LIST changes: +[UNRECOGNIZED DRUG - OTHER]
--- NOTE | 2017-10-04 18:01 | ER Report ---
History and Physical Time Seen By : 18:01 Hx. of Stated Complaint: PT IS HAVING BLOOD IN URINE. PT STATES IT STARTED ON MONDAY AND WAS SEEN IN ER THEN. PT STATES URINE CLEARED UP FOR A COUPLE OF DAYS AND NOW IS BLOODY AGAIN HPI/ROS CHIEF COMPLAINT: Hematuria HISTORY OF PRESENT ILLNESS: 82-year-old male with a chronic indwelling Berkowitz catheter. Patient was seen here 3 days ago with hematuria in his catheter and some blood staining around the penis in his meatus. He was evaluated and told to follow-up with Dr. Martinez within one week. He has failed to do so. Patient also has atrial fibrillation and is on chronic and quite elation with warfarin. His last INR was reported as 3.1 from the patient. Patient notes no pain, fever, chills, nausea, vomiting or dysuria. His catheter shows pb dark bloody urine that is somewhat cloudy. REVIEW OF SYSTEMS: Respiratory: No cough, no dyspnea. Cardiovascular: No chest pain, no palpitations. Gastrointestinal: No vomiting, no abdominal pain. Musculoskeletal: No back pain. Allergies: Coded Allergies: pineapple (Verified Allergy, Unknown, UNKNOWN, 10/01/17) Home Meds Active Scripts Cefuroxime Axetil (CEFUROXIME) 250 Mg Tablet, 250 MG PO BID for INFECTION, #14 TAB Prov:KEITH BERG DO 10/04/17 Sertraline Hcl (SERTRALINE HCL) 50 Mg Tablet, 1 TAB PO QDAY, #90 TAB 1 Refill Prov:ZEESHAN ANDREWS MD 09/15/17 Albuterol Sulfate (VENTOLIN HFA) 18 Gm Inh, 2 PUFF INH Q6H PRN for SHORTNESS OF BREATH, #1 INH 4 Refills Prov:ZEESHAN ANDREWS MD 08/04/17 Omeprazole (OMEPRAZOLE) 20 Mg Capsule.dr, 1 CAP PO QDAY, #90 CAP 4 Refills Prov:ZEESHAN ANDREWS MD 08/03/17 Ropinirole Hcl (ROPINIROLE HCL) 0.5 Mg Tablet, 0.5 MG PO HS, #90 TAB 1 Refill Prov:ZEESHAN ANDREWS MD 07/05/17 Tamsulosin Hcl (TAMSULOSIN HCL) 0.4 Mg Cap.er.24h, 1 CAP PO QHS, #90 CAP 3 Refills Prov:ZEESHAN ANDREWS MD 06/29/17 Warfarin Sodium (COUMADIN) 5 Mg Tablet, 5 MG PO M,,,F,Sa, #90 TAB 1 Refill Prov:ZEESHAN ANDREWS MD 06/21/17 Warfarin Sodium (COUMADIN) 2.5 Mg Tablet, 2.5 MG PO Mon and Mon, #90 TAB 1 Refill Prov:ZEESHAN ANDREWS MD 06/21/17 Valacyclovir Hcl (VALACYCLOVIR) 500 Mg Tablet, 500 MG PO QAM, #90 TAB 4 Refills Prov:ZEESHAN ANDREWS MD 05/16/17 Levothyroxine Sodium (LEVOTHYROXINE SODIUM) 75 Mcg Tablet, 1 TAB PO QDAY, #90 TAB 4 Refills Prov:ZEESHAN ANDREWS MD 03/09/17 Nystatin 100,000 Unit/Gm Top Powder (NYSTATIN 100,000 UNIT/GM TOP POWDER) 15 Gm Powder, 1 RICCI TP BID, #60 G 2 Refills Prov:ZEESHAN ANDREWS MD 01/18/17 Metoprolol Tartrate (METOPROLOL TARTRATE) 25 Mg Tablet, 1 TAB PO QHS, #90 TAB 2 Refills Prov:ZEESHAN ANDREWS MD 07/13/16 Oxygen (OXYGEN) Inha, 1.5-3 L INH cont, #0 L Prov:MARK SIMPSON MD 09/14/15 Reported Medications Cefuroxime Axetil (CEFUROXIME) 250 Mg Tablet, 250 MG PO BID for 7 Days, #14 TAB 0 Refills 10/05/17 [Alarex] No Conflict Check 10/01/17 Dextran 70/Hypromellose (ARTIFICIAL TEARS) 1 Each Droperette, 1 EACH OP BID 01/04/16 Polyethylene Glycol 8000 (POLYETHYLENE GLYCOL) 500 Gm Powder, 8.5 GM PO MON, WED, FRI 01/04/16 Discontinued Reported Medications Cefuroxime Axetil (CEFUROXIME) 250 Mg Tablet, 250 MG PO BID for 7 Days, #14 TAB 0 Refills 10/05/17 Discontinued Scripts Prednisolone Acetate (PRED FORTE) 1 Ml Drops.susp, 1 GTT OS QODAY, #1 BOT 3 Refills Prov:ZEESHAN ANDREWS MD 06/08/16 Past Medical/Surgical History The patient has a past medical and surgical history of blind in the right eye, hypertension, COPD, continuous oxygen use, bronchitis, mass and abdomen removed, GERD, urinary incontinence, arthritis, thumb fracture, left shoulder fracture, chronic back pain, dentures, wears glasses, hard of hearing, VRE, skin cancer on nose excised, hypothyroidism, anxiety, umbilical hernia repair, cystoscopy, TURP, laminectomy, tonsillectomy. Reviewed Nurses Notes: Yes Old Medical Records Reviewed: Yes Hx Smoking: No (quit in 1987) Smoking Status: Former Smoker Exposure to Second Hand Smoke?: No Hx Substance Use Disorder: No Hx Alcohol Use: Yes (OCC) Constitutional Vital Sign - Last 24 Hours 10/04/17 10/04/17 10/04/17 10/04/17 17:39 17:49 17:49 17:54 Temp 98.8 Pulse ??? 71 66 Resp 22 B/P (MAP) 170/72 (104) 170/72 Pulse Ox 95 98 O2 Delivery Nasal Cannula 10/04/17 10/04/17 10/04/17 10/04/17 18:00 18:09 18:24 18:30 Pulse 64 61 B/P (MAP) 163/78 (106) 157/77 (103) Pulse Ox 98 98 10/04/17 10/04/17 10/04/17 10/04/17 18:39 18:54 19:00 19:09 Pulse 62 64 61 B/P (MAP) 163/76 (105) Pulse Ox 97 97 98 10/04/17 10/04/17 19:24 19:30 Pulse 61 B/P (MAP) 167/77 (107) Pulse Ox 98 Physical Exam Vital signs stable, afebrile, pulse ox normal, General Appearance: The patient is alert, has no immediate need for airway protection and no current signs of toxicity. No acute distress, skin warm, dry, pink Eyes: Pupils equal and round no injection. Respiratory: Chest is non tender, lungs are clear to auscultation. Cardiac: regular rate and rhythm Gastrointestinal: Abdomen is soft and non tender, no masses, bowel sounds normal. Genital: Indwelling Berkowitz catheter with some mild blood staining around the meatus. Through the catheter. There is dark gross hematuria. The urine is somewhat cloudy as well. Musculoskeletal: Neck: Neck is supple and non tender. Extremities have full range of motion and are non tender. Skin: No rashes or lesions. DIFFERENTIAL DIAGNOSIS: After history and physical exam differential diagnosis w as considered for UTI, excessive anticoagulation, catheter irritation, catheter trauma Medical Decision Making Data Points Laboratory Hematology Test 10/04/17 18:24 10/04/17 18:55 Urine Color Red Urine Clarity Cloudy Urine pH 8.0 pH (4.8-9.5) Urine Specific [place] 1.012 Urine Protein 100 mg/dL (NEGATIVE) Urine Glucose (UA) Negative mg/dL (NEGATIVE) Urine Ketones Negative mg/dL (NEGATIVE) Urine Blood Large (NEGATIVE) Urine Nitrite Positive (NEGATIVE) Urine Bilirubin Negative (NEGATIVE) Urine Urobilinogen Negative mg/dL (0.2-1.9) Urine Leukocyte Esterase Large (NEGATIVE) Urine RBC 3414 /HPF (0-2/HPF) Urine WBC 522 /HPF (0-5/HPF) Urine WBC Clumps Many /HPF Urine Squamous Epithelial Cells None /LPF (NONE-FEW) Urine Bacteria Negative /HPF (NONE-FEW) Urine Mucus None /HPF (NONE-FEW) Prothrombin Time 27.9 seconds (12.0-14.4) Prothromb Time International Ratio 2.55 Chemistry Test 10/04/17 18:24 10/04/17 18:55 Urine Color Red Urine Clarity Cloudy Urine pH 8.0 pH (4.8-9.5) Urine Specific [place] 1.012 Urine Protein 100 mg/dL (NEGATIVE) Urine Glucose (UA) Negative mg/dL (NEGATIVE) Urine Ketones Negative mg/dL (NEGATIVE) Urine Blood Large (NEGATIVE) Urine Nitrite Positive (NEGATIVE) Urine Bilirubin Negative (NEGATIVE) Urine Urobilinogen Negative mg/dL (0.2-1.9) Urine Leukocyte Esterase Large (NEGATIVE) Urine RBC 3414 /HPF (0-2/HPF) Urine WBC 522 /HPF (0-5/HPF) Urine WBC Clumps Many /HPF Urine Squamous Epithelial Cells None /LPF (NONE-FEW) Urine Bacteria Negative /HPF (NONE-FEW) Urine Mucus None /HPF (NONE-FEW) Prothrombin Time 27.9 seconds (12.0-14.4) Prothromb Time International Ratio 2.55 Coagulation Test 10/04/17 18:55 Prothrombin Time 27.9 seconds Prothromb Time International Ratio 2.55 Urinalysis Test 10/04/17 18:24 Urine Color Red Urine Clarity Cloudy Urine pH 8.0 pH (4.8-9.5) Urine Specific [place] 1.012 Urine Protein 100 mg/dL (NEGATIVE) Urine Glucose (UA) Negative mg/dL (NEGATIVE) Urine Ketones Negative mg/dL (NEGATIVE) Urine Blood Large (NEGATIVE) Urine Nitrite Positive (NEGATIVE) Urine Bilirubin Negative (NEGATIVE) Urine Urobilinogen Negative mg/dL (0.2-1.9) Urine Leukocyte Esterase Large (NEGATIVE) Urine RBC 3414 /HPF (0-2/HPF) Urine WBC 522 /HPF (0-5/HPF) Urine WBC Clumps Many /HPF Urine Squamous Epithelial Cells None /LPF (NONE-FEW) Urine Bacteria Negative /HPF (NONE-FEW) Urine Mucus None /HPF (NONE-FEW) Microbiology Microbiology Date/Time Source Procedure Growth Status 10/04/17 18:24 Cath Urine Urine Culture - Preliminary Gram Negative Ángel Resulted ED Course/Re-evaluation ED Course Patient was admitted to an examination room. H&P was done. The differential diagnoses was considered. Patient with hematuria and his catheter. It was irrigated clear. A urinalysis was sent off which showed obvious infection. Patient be covered with Ceftin and a monitor. A urinary cultures ordered. Patient's advised to follow-up with Dr. Martinez. Patient advised to increase his fluid intake. Follow-up with primary care to check INR. Decision to Disposition Date: Oct 04, 2017 Decision to Disposition Time: 19:20 Depart Departure Latest Vital Signs Vital Signs Date Time Temp Pulse Resp B/P (MAP) Pulse Ox O2 Delivery O2 Flow Rate FiO2 10/04/17 19:30 167/77 (107) 10/04/17 19:24 61 98 10/04/17 17:49 98.8 22 Nasal Cannula Impression: Primary Impression: Hematuria Additional Impressions: UTI (urinary tract infection) Anticoagulation adequate Condition: Improved Disposition: HOME OR SELF-CARE Referrals: ZEESHAN ANDREWS MD (PCP) New Scripts Cefuroxime Axetil (CEFUROXIME) 250 Mg Tablet 250 MG PO BID for INFECTION, #14 TAB Prov: KEITH BERG 10/04/17 Patient Instructions: Urinary Tract Infection in Men (ED) Additional Instructions: Follow-up with primary care or Dr. Martinez in 2 days to check the urinary culture Problem Qualifiers Primary Impression: Hematuria Hematuria type: unspecified type Qualified Codes: R31.9 - Hematuria, unspecified Additional Impressions: UTI (urinary tract infection) Urinary tract infection type: acute cystitis Hematuria presence: with hematuria Qualified Codes: N30.01 - Acute cystitis with hematuria KEITH BERG DO Oct 04, 2017 18:01
[2017-10-04] MEDS ORDERED: CEFUROXIME AXETIL 250 MG TAB PO ONE (19:15)
[2017-10-04 19:17] LABS: INR 2.55
[2017-10-04] MEDS ORDERED: CEFU250T11 PO (19:22)
[2017-10-04 19:30] VITALS: BP 167/77
[2017-10-05] MEDS ORDERED: CEFU250T11 PO ×2 (20:10→20:13)
== END 2017-10-04 19:40 | disposition home or self-care (01) ==
LOC: ER 18:15
DX: R31.9 Hematuria, unspecified (principal); N30.01 Acute cystitis with hematuria; I48.2 Chronic atrial fibrillation; Z79.01 Long term (current) use of anticoagulants
CPT/HCPCS: 36415; 81001; 85610; 87088; 99283; A9270; 87077; 87186

== ENCOUNTER 2017-10-05 19:40 | Emergency (ER) | payer MEDICARE, OTHER ==
[2016-04-13 16:22] VITALS: Wt 99.8 kg
[~2017-10-05 19:40] MED LIST changes: +CEFU250T11 PO
--- NOTE | 2017-10-05 19:52 | ER Report ---
History and Physical Time Seen By : 19:52 HPI/ROS CHIEF COMPLAINT: Hematuria in and around catheter HISTORY OF PRESENT ILLNESS: 82-year-old male on chronic anticoagulation on warfarin for atrial flutter. Patient has a chronic indwelling Berkowitz catheter. He's followed by Dr. Martinez. He's been seen here in the ER in 2 previous visits over the last several days. Patient's INR was supratherapeutic at 3.1. Yesterday was checked at 2.55. Patient's catheter was irrigated. A urinalysis showed infection. He was started on Ceftin 250 mg by mouth twice a day. He was advised to follow-up with Dr. Martinez today. Apparently he was unable to get in to get a hold of Dr. Martinez. He presents tonight with continued and heavy bleeding from around his catheter, saturating his dependence as well as dark blood and clots in the Berkowitz catheter. Patient notes no fever, chills, nausea or vomiting. He does note that he is a little bit lightheaded. He denies chest pain or shortness of breath. REVIEW OF SYSTEMS: Respiratory: No cough, no dyspnea. Cardiovascular: No chest pain, no palpitations. Gastrointestinal: No vomiting, no abdominal pain. Musculoskeletal: No back pain. Allergies: Coded Allergies: pineapple (Verified Allergy, Unknown, UNKNOWN, 10/01/17) Home Meds Active Scripts Cefuroxime Axetil (CEFUROXIME) 250 Mg Tablet, 250 MG PO BID for INFECTION, #14 TAB Prov:KEITH BERG DO 10/04/17 Sertraline Hcl (SERTRALINE HCL) 50 Mg Tablet, 1 TAB PO QDAY, #90 TAB 1 Refill Prov:ZEESHAN ANDREWS MD 09/15/17 Albuterol Sulfate (VENTOLIN HFA) 18 Gm Inh, 2 PUFF INH Q6H PRN for SHORTNESS OF BREATH, #1 INH 4 Refills Prov:ZEESHAN ANDREWS MD 08/04/17 Omeprazole (OMEPRAZOLE) 20 Mg Capsule., 1 CAP PO QDAY, #90 CAP 4 Refills Prov:ZEESHAN ANDREWS MD 08/03/17 Ropinirole Hcl (ROPINIROLE HCL) 0.5 Mg Tablet, 0.5 MG PO HS, #90 TAB 1 Refill Prov:ZEESHAN ANDREWS MD 07/05/17 Tamsulosin Hcl (TAMSULOSIN HCL) 0.4 Mg Cap.er.24h, 1 CAP PO QHS, #90 CAP 3 Refills Prov:ZEESHAN ANDREWS MD 06/29/17 Warfarin Sodium (COUMADIN) 5 Mg Tablet, 5 MG PO M,,Th,F,Sa, #90 TAB 1 Refill Prov:ZEESHAN ANDREWS MD 06/21/17 Warfarin Sodium (COUMADIN) 2.5 Mg Tablet, 2.5 MG PO Mon and Mon, #90 TAB 1 Refill Prov:ZEESHAN ANDREWS MD 06/21/17 Valacyclovir Hcl (VALACYCLOVIR) 500 Mg Tablet, 500 MG PO QAM, #90 TAB 4 Refills Prov:ZEESHAN ANDREWS MD 05/16/17 Levothyroxine Sodium (LEVOTHYROXINE SODIUM) 75 Mcg Tablet, 1 TAB PO QDAY, #90 TAB 4 Refills Prov:ZEESHAN ANDREWS MD 03/09/17 Nystatin 100,000 Unit/Gm Top Powder (NYSTATIN 100,000 UNIT/GM TOP POWDER) 15 Gm Powder, 1 RICCI TP BID, #60 G 2 Refills Prov:ZEESHAN ANDREWS MD 01/18/17 Metoprolol Tartrate (METOPROLOL TARTRATE) 25 Mg Tablet, 1 TAB PO QHS, #90 TAB 2 Refills Prov:ZEESHAN ANDREWS MD 07/13/16 Oxygen (OXYGEN) Inha, 1.5-3 L INH cont, #0 L Prov:MARK SIMPSON MD 09/14/15 Reported Medications Cefuroxime Axetil (CEFUROXIME) 250 Mg Tablet, 250 MG PO BID for 7 Days, #14 TAB 0 Refills 10/05/17 [Alarex] No Conflict Check 10/01/17 Dextran 70/Hypromellose (ARTIFICIAL TEARS) 1 Each Droperette, 1 EACH OP BID 01/04/16 Polyethylene Glycol 8000 (POLYETHYLENE GLYCOL) 500 Gm Powder, 8.5 GM PO MON, WED, FRI 01/04/16 Discontinued Reported Medications Cefuroxime Axetil (CEFUROXIME) 250 Mg Tablet, 250 MG PO BID for 7 Days, #14 TAB 0 Refills 10/05/17 Discontinued Scripts Prednisolone Acetate (PRED FORTE) 1 Ml Drops.susp, 1 GTT OS QODAY, #1 BOT 3 Refills Prov:ZEESHAN ANDREWS MD 06/08/16 Past Medical/Surgical History Past medical history: Tinnitus, 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 Herpes zoster left cornea after, edema both lower extremities. Wear support hose, hypertension, COPD, O2 2.5 L at night, unable to use C Pap, GERD, on PPD for years, chronic renal failure. Creatinine baseline 1.8. Overactive bladder. Berkowitz burst and bladder 2011 pieces of balloon removed per Dr. Martinez, osteoarthritis, depression, hypothyroidism, shingles affecting left. I passed surgical history: Cataract extraction, ear surgery, left mastoidectomy as a child, GI surgery for benign mass 2010, TURP in 2011, circumcision repeat bladder surgery 04/19. Dr. Martinez, spinal surgery, lumbar laminectomy, 1990, total joint replacement, left knee, 2002, benign tumor removed from the in 1951 Reviewed Nurses Notes: Yes Old Medical Records Reviewed: Yes Hx Smoking: No (quit in 1987) Smoking Status: Former Smoker Exposure to Second Hand Smoke?: No Hx Substance Use Disorder: No Hx Alcohol Use: Yes (OCC) Constitutional Vital Sign - Last 24 Hours 10/05/17 10/05/17 10/05/17 10/05/17 19:40 19:55 19:56 20:00 Temp 98.4 Pulse ??? 81 73 Resp 18 B/P (MAP) 167/75 (105) 167/75 157/85 (109) Pulse Ox 81 96 O2 Delivery Nasal Cannula 10/05/17 10/05/17 10/05/17 10/05/17 20:10 20:25 20:30 20:40 Pulse 68 71 71 B/P (MAP) 144/74 (97) Pulse Ox 97 96 97 10/05/17 10/05/17 10/05/17 10/05/17 20:55 21:00 21:10 21:25 Pulse 66 65 68 B/P (MAP) 144/66 (92) Pulse Ox 97 97 97 10/05/17 10/05/17 10/05/17 10/05/17 21:30 21:45 22:00 22:15 Pulse 63 68 67 69 B/P (MAP) 152/70 (97) 150/71 (97) Pulse Ox 97 97 97 97 10/05/17 10/05/17 22:30 22:45 Pulse ? B/P (MAP) 148/72 (97) Physical Exam General Appearance: The patient is alert, has no immediate need for airway protection and no current signs of toxicity. Vital signs stable, afebrile, pulse ox normal, skin warm, dry, pink Eyes: Pupils equal and round no injection. Respiratory: Chest is non tender, lungs are clear to auscultation. Cardiac: regular rate and rhythm Gastrointestinal: Abdomen is soft and non tender, no masses, bowel sounds normal. Indwelling Berkowitz catheter with dark blood staining around the meatus Musculoskeletal: Neck: Neck is supple and non tender. Extremities have full range of motion and are non tender. Skin: No rashes or lesions. DIFFERENTIAL DIAGNOSIS: After history and physical exam differential diagnosis was considered for hematuria, excessive and a coagulation, urinary tract in fection Medical Decision Making Data Points Result Diagram: 10/05/17 2100 10/05/17 2100 Laboratory Hematology Test 10/05/17 21:00 Red Blood Count 3.54 M/uL (4.00-5.60) Mean Corpuscular Volume 91.9 fL (80.0-96.0) Mean Corpuscular Hemoglobin 30.5 pg (26.0-33.0) Mean Corpuscular Hemoglobin Concent 33.2 g/dL (32.0-36.0) Red Cell Distribution Width 16.6 % (11.5-14.5) Mean Platelet Volume 8.9 fL (7.2-11.1) Neutrophils (%) (Auto) 56.3 % (39.4-72.5) Lymphocytes (%) (Auto) 29.6 % (17.6-49.6) Monocytes (%) (Auto) 10.0 % (4.1-12.4) Eosinophils (%) (Auto) 3.4 % (0.4-6.7) Basophils (%) (Auto) 0.7 % (0.3-1.4) Nucleated RBC Relative Count (auto) 0.0 /100WBC Neutrophils # (Auto) 4.4 K/uL (2.0-7.4) Lymphocytes # (Auto) 2.3 K/uL (1.3-3.6) Monocytes # (Auto) 0.8 K/uL (0.3-1.0) Eosinophils # (Auto) 0.3 K/uL (0.0-0.5) Basophils # (Auto) 0.1 K/uL (0.0-0.1) Nucleated RBC Absolute Count (auto) 0.00 K/uL Prothrombin Time 27.1 seconds (12.0-14.4) Prothromb Time International Ratio 2.46 Sodium Level 136 mmol/L (137-145) Potassium Level 4.4 mmol/L (3.5-5.0) Chloride Level 100 mmol/L (98-107) Carbon Dioxide Level 30 mmol/L (22-30) Blood Urea Nitrogen 23 mg/dl (9-21) Creatinine 1.30 mg/dl (0.66-1.25) Glomerular Filtration Rate Calc 52.9 Random Glucose 100 mg/dl (75-110) Calcium Level 8.8 mg/dl (8.4-10.2) Total Bilirubin 0.3 mg/dl (0.2-1.3) Aspartate Amino Transf (AST/SGOT) 15 U/L (0-35) Alanine Aminotransferase (ALT/SGPT) 22 U/L (0-56) Alkaline Phosphatase 63 U/L (0-126) Total Protein 6.7 g/dl (6.3-8.2) Albumin 3.4 g/dl (3.5-5.0) Chemistry Test 10/05/17 21:00 White Blood Count 7.7 k/uL (4.5-11.0) Red Blood Count 3.54 M/uL (4.00-5.60) Hemoglobin 10.8 g/dL (14.0-18.0) Hematocrit 32.5 % (42.0-52.0) Mean Corpuscular Volume 91.9 fL (80.0-96.0) Mean Corpuscular Hemoglobin 30.5 pg (26.0-33.0) Mean Corpuscular Hemoglobin Concent 33.2 g/dL (32.0-36.0) Red Cell Distribution Width 16.6 % (11.5-14.5) Platelet Count 208 K/uL (150-450) Mean Platelet Volume 8.9 fL (7.2-11.1) Neutrophils (%) (Auto) 56.3 % (39.4-72.5) Lymphocytes (%) (Auto) 29.6 % (17.6-49.6) Monocytes (%) (Auto) 10.0 % (4.1-12.4) Eosinophils (%) (Auto) 3.4 % (0.4-6.7) Basophils (%) (Auto) 0.7 % (0.3-1.4) Nucleated RBC Relative Count (auto) 0.0 /100WBC Neutrophils # (Auto) 4.4 K/uL (2.0-7.4) Lymphocytes # (Auto) 2.3 K/uL (1.3-3.6) Monocytes # (Auto) 0.8 K/uL (0.3-1.0) Eosinophils # (Auto) 0.3 K/uL (0.0-0.5) Basophils # (Auto) 0.1 K/uL (0.0-0.1) Nucleated RBC Absolute Count (auto) 0.00 K/uL Prothrombin Time 27.1 seconds (12.0-14.4) Prothromb Time International Ratio 2.46 Glomerular Filtration Rate Calc 52.9 Calcium Level 8.8 mg/dl (8.4-10.2) Total Bilirubin 0.3 mg/dl (0.2-1.3) Aspartate Amino Transf (AST/SGOT) 15 U/L (0-35) Alanine Aminotransferase (ALT/SGPT) 22 U/L (0-56) Alkaline Phosphatase 63 U/L (0-126) Total Protein 6.7 g/dl (6.3-8.2) Albumin 3.4 g/dl (3.5-5.0) Coagulation Test 10/05/17 21:00 Prothrombin Time 27.1 seconds Prothromb Time International Ratio 2.46 EKG/Imaging Imaging X-ray: KUB with Gastrografin infused in the bladder was obtained. I viewed the images myself on the PACS system. My interpretation of the images is: Berkowitz catheter in the bladder with balloon inflated. Abdomen: Indication: Evaluate Berkowitz catheter placement. Technique: A single supine image of the lower abdomen and pelvis was obtained following the injection of 25 cc of Cysto-Conray through a Berkowitz catheter. Comparison: None. Findings: The injected contrast opacifies the bladder lumen, which appears small. The Berkowitz catheter is located within the lumen. There are no signs of contrast extravasation. The skeletal structures appear intact. Diffuse atherosclerotic calcification is observed in the femoral arteries. IMPRESSION: The Berkowitz catheter is located within the bladder lumen.. ED Course/Re-evaluation ED Course Patient was admitted to an examination room. H&P was done. The differential diagnoses was considered. On clinical examination. Patient continued to have heavy bleeding from around his Berkowitz catheter at his penis as well as hematuria in the urinary bag. She was diagnosed with a UTI yesterday and placed on Ceftin. He's feeling a little lightheaded and dizzy, but his vital signs are stable. Tonight. H&H shows hemoglobin and hematocrit of 10.8 and 32.5. Comparison to his previous H&H from May there is a slight decrease. Patient's INR is 2.46. Patient will be given vitamin K 5 mg by mouth to hopefully reverse his anticoagulation to stop his bleeding. He is advised to discontinue his Coumadin for 3 days. He is advised to follow-up with Dr. Martinez tomorrow. 10/05/2017 9:33:15 pm case discussed with Dr. Martinez urologist configuration management manager. He requests a cystogram be performed. On 2nd consultation results of the cystogram were discussed with Dr. Martinez. He requested B&O suppository be administered per rectum Decision to Disposition Date: Oct 05, 2017 Decision to Disposition Time: 22:40 Depart Departure Latest Vital Signs Vital Signs Date Time Temp Pulse Resp B/P (MAP) Pulse Ox O2 Delivery O2 Flow Rate FiO2 10/05/17 22:45 ??? 10/05/17 22:30 148/72 (97) 10/05/17 22:15 97 10/05/17 19:56 98.4 18 Nasal Cannula Impression: Primary Impression: Hematuria Additional Impressions: Berkowitz catheter problem Chronic anticoagulation Urinary tract infection Condition: Stable Disposition: HOME OR SELF-CARE Referrals: ZEESHAN ANDREWS MD (PCP) Patient Instructions: Hematuria (ED), Urinary Tract Infection in Men (ED) Additional Instructions: Follow-up with Dr. Martinez tomorrow in his office Drink plenty of fluids to stay well hydrated and dilute your urine Hold warfarin for the next 3 days Problem Qualifiers Primary Impression: Hematuria Hematuria type: unspecified type Qualified Codes: R31.9 - Hematuria, unspecified Additional Impressions: Berkowitz catheter problem Encounter type: subsequent encounter Qualified Codes: T83.9XXD - Unspecified complication of genitourinary prosthetic device, implant and graft, subsequent encounter Urinary tract infection Urinary tract infection type: acute cystitis Hematuria presence: with hematuria Qualified Codes: N30.01 - Acute cystitis with hematuria KEITH BERG DO Oct 05, 2017 19:52
[2017-10-05] MEDS ORDERED: CEFU250T11 PO ×2 (20:10→20:13)
[2017-10-05 21:19] LABS: PLATELET COUNT, AUTOMATED 208 K/uL (150-450)
[2017-10-05 21:20] LABS: INR 2.46
[2017-10-05] MEDS ORDERED: DIATRIZOATE MEGL/DIATRIZOA SOD 367 MG/ML SOLN ONE (21:49)
[2017-10-05] MEDS ORDERED: IOTHALAMATE MEGLU 172MG/ML BTL 250 ML IVPB ONE (21:56)
[2017-10-05 22:30] VITALS: BP 148/72
[2017-10-05] MEDS ORDERED: BELLADONNA ALKALOIDS/OPIUM 30 MG SUPP PR PRN (22:40)
[2017-10-05] MEDS ORDERED: PHYTONADIONE 5 MG TAB PO ONE (22:45)
--- NOTE | 2017-10-06 00:29 | RADIOLOGY IMAGING REPORT ---
FACILITY: [facility] - [place], [place] PATIENT NAME: Tj Shaw : 1935 MR: [id number] V: [id number] EXAM DATE: ORDERING PHYSICIAN: KEITH BERG TECHNOLOGIST: Location: [facility] - [place] Patient: Tj Shaw : 1935 Visit/Account:[id number] Date of Sevice: 10/05/2017 Abdomen: Indication: Evaluate Berkowitz catheter placement. Technique: A single supine image of the lower abdomen and pelvis was obtained following the injection of 25 cc of Cysto-Conray through a Berkowitz catheter. Comparison: None. Findings: The injected contrast opacifies the bladder lumen, which appears small. The Berkowitz catheter is located within the lumen. There are no signs of contrast extravasation. The skeletal structures appear intact. Diffuse atherosclerotic calcification is observed in the femor al arteries. IMPRESSION: The Berkowitz catheter is located within the bladder lumen. Report Dictated By: Darius Espinoza MD at 10/06/2017 12:20 AM Report E-Signed By: Darius Espinoza MD at 10/06/2017 12:24 AM WSN:[id number]
== END 2017-10-05 23:00 | disposition home or self-care (01) ==
LOC: ER 19:59
DX: R31.9 Hematuria, unspecified (principal); T83.9XXD Unspecified complication of genitourinary prosthetic device, implant and graft, subsequent encounter; Z96.0 Presence of urogenital implants; Z79.01 Long term (current) use of anticoagulants; N30.01 Acute cystitis with hematuria
CPT/HCPCS: 74018; 85025; 85610; 99283; A9270; Q9958; 82040; 82247; 82310; 82374; 82435; 82565; 82947; 84075; 84132; 84155; 84295; 84450; 84460; 84520

== ENCOUNTER → 2017-10-13 | Outpatient (CLI) | payer MEDICARE, OTHER ==
[2016-04-13 16:22] VITALS: BMI 29.2
[~2017-10-13] MED LIST changes: -AMLO2.5T74 PO; +AMLO2.5T76 PO
[2017-10-13 13:50] LABS: INR 1.25
== END ==
LOC: LAB 13:00
PROVIDERS: ATTEND Internal Medicine
DX: I48.91 Unspecified atrial fibrillation (principal)
CPT/HCPCS: 36415; 85610

== ENCOUNTER → 2017-10-27 | Outpatient (CLI) | payer MEDICARE, OTHER ==
[2016-04-13 16:22] VITALS: BMI 29.2
[2017-10-27 14:17] LABS: INR 2.4
== END ==
LOC: LAB 11:08
PROVIDERS: ATTEND Nurse Practitioner Primary Care
DX: I48.91 Unspecified atrial fibrillation (principal)
CPT/HCPCS: 36415; 85610

== ENCOUNTER → 2017-11-10 | Outpatient (CLI) | payer MEDICARE, OTHER ==
[2016-04-13 16:22] VITALS: BMI 29.2
[2017-11-10 14:41] LABS: INR 2.69
== END ==
LOC: LAB 13:35
PROVIDERS: ATTEND Internal Medicine
DX: Z79.01 Long term (current) use of anticoagulants (principal)
CPT/HCPCS: 36415; 85610

== ENCOUNTER 2017-12-31 16:57 | Inpatient (IN) | payer MEDICARE, OTHER ==
[~2017-12-31] VITALS: Ht 175.3 cm; Wt 105.7 kg
--- NOTE | 2017-12-31 17:00 | ER Report ---
History and Physical Time Seen By MD: 17:00 (IMAN SMITH DO) HPI/ROS CHIEF COMPLAINT: gross hematuria HISTORY OF PRESENT ILLNESS: PT has a chronic peacock for urinary incontinence that lead to skin break down. Pts visiting nurse comes once a month to change the peacock. Today it was changed and had gross hematuria returned. Nurse attempted to replace the peacock again wtih 16F and still with hematuria and no urine return. Home health nurse did not have any equipment to attempt to irrigate the peacock so sent to ed. pt does c/o of some superpubic tenderness currently. no fevers or chills. pt is on coumadin for afib. Pts urologist is Dr Brown REVIEW OF SYSTEMS: Constitutional: No fever, no chills. Eyes: No discharge. ENT: No sore throat. Cardiovascular: No chest pain, no palpitations. Respiratory: No cough, no shortness of breath. Gastrointestinal: +superpubic abdominal pain, no vomiting. Genitourinary: + hematuria. Musculoskeletal: No back pain. Skin: No rashes. Neurological: No headache. (IMAN SMITH DO) Allergies: Coded Allergies: pineapple (Verified Allergy, Unknown, UNKNOWN, 10/01/17) Home Meds Active Scripts Metoprolol Tartrate (METOPROLOL TARTRATE) 25 Mg Tablet, 1 TAB PO QHS, #90 TAB 3 Refills Prov:ZEESHAN ANDREWS MD 11/13/17 Cefuroxime Axetil (CEFUROXIME) 250 Mg Tablet, 250 MG PO BID for INFECTION, #14 TAB Prov:KEITH FINN DO 10/04/17 Sertraline Hcl (SERTRALINE HCL) 50 Mg Tablet, 1 TAB PO QDAY, #90 TAB 1 Refill Prov:ZEESHAN ANDREWS MD 09/15/17 Albuterol Sulfate (VENTOLIN HFA) 18 Gm Inh, 2 PUFF INH Q6H PRN for SHORTNESS OF BREATH, #1 INH 4 Refills Prov:ZEESHAN ANDREWS MD 08/04/17 Omeprazole (OMEPRAZOLE) 20 Mg Capsule., 1 CAP PO QDAY, #90 CAP 4 Refills Prov:ZEESHAN ANDREWS MD 08/03/17 Ropinirole Hcl (ROPINIROLE HCL) 0.5 Mg Tablet, 0.5 MG PO HS, #90 TAB 1 Refill Prov:ZEESHAN ANDREWS MD 07/05/17 Tamsulosin Hcl (TAMSULOSIN HCL) 0.4 Mg Cap.er.24h, 1 CAP PO QHS, #90 CAP 3 Refills Prov:ZEESHAN ANDREWS MD 06/29/17 Warfarin Sodium (COUMADIN) 5 Mg Tablet, 5 MG PO M,,,F,Sa, #90 TAB 1 Refill Prov:ZEESHAN ANDREWS MD 06/21/17 Warfarin Sodium (COUMADIN) 2.5 Mg Tablet, 2.5 MG PO Mon and Mon, #90 TAB 1 Refill Prov:ZEESHAN ANDREWS MD 06/21/17 Valacyclovir Hcl (VALACYCLOVIR) 500 Mg Tablet, 500 MG PO QAM, #90 TAB 4 Refills Prov:ZEESHAN ANDREWS MD 05/16/17 Levothyroxine Sodium (LEVOTHYROXINE SODIUM) 75 Mcg Tablet, 1 TAB PO QDAY, #90 TAB 4 Refills Prov:ZEESHAN ANDREWS MD 03/09/17 Nystatin 100,000 Unit/Gm Top Powder (NYSTATIN 100,000 UNIT/GM TOP POWDER) 15 Gm Powder, 1 RICCI TP BID, #60 G 2 Refills Prov:ZEESHAN ANDREWS MD 01/18/17 Oxygen (OXYGEN) Inha, 1.5-3 L INH cont, #0 L Prov:MARK SIMPSON MD 09/14/15 Reported Medications Cefuroxime Axetil (CEFUROXIME) 250 Mg Tablet, 250 MG PO BID for 7 Days, #14 TAB 0 Refills 10/05/17 [Alarex] No Conflict Check 10/01/17 Dextran 70/Hypromellose (ARTIFICIAL TEARS) 1 Each Droperette, 1 EACH OP BID 01/04/16 Polyethylene Glycol 8000 (POLYETHYLENE GLYCOL) 500 Gm Powder, 8.5 GM PO MON, MON, Mon01/04/16 Past Medical/Surgical History Pmhx: CVA, blindness in the right eye, hypertension, hyperlipidemia, bronchitis, COPD, reflux, frequent UTI, enlarged prostate, arthritis, fracture to thumb, shoulder, back pain, dentures, hypothyroidism, skin cancer, alcohol use, depression, VRE in urine, afib, skin decub. Pshx: hernia repair, cystoscopy, TURP, back surgery, tonsillectomy, surgery on his mastoid. Pfhx: cancer, CAD, stroke. (IMAN SMITH DO) Reviewed Nurses Notes: Yes Old Medical Records Reviewed: Yes (IMAN SMITH DO) Hx Smoking: No (quit in 1987) Smoking Status: Former Smoker Exposure to Second Hand Smoke?: No Hx Substance Use Disorder: No Hx Alcohol Use: Yes (OCC) (IMAN SMITH DO) Constitutional Vital Sign - Last 24 Hours 12/31/17 12/31/17 12/31/17 12/31/17 17:03 18:45 19:00 19:15 Temp 99.8 Pulse 101 110 128 124 Resp 20 32 15 19 B/P (MAP) 200/98 164/106 (125) Pulse Ox 97 97 93 O2 Delivery Nasal Cannula 12/31/17 12/31/17 12/31/17 12/31/17 19:30 19:45 20:00 20:15 Pulse 119 124 122 128 Resp 18 58 34 30 B/P (MAP) 207/103 (137) 188/93 (124) Pulse Ox 93 95 92 92 O2 Delivery Nasal Cannula Nasal Cannula O2 Flow Rate 4 3 12/31/17 12/31/17 12/31/17 12/31/17 20:30 20:45 21:00 21:15 Pulse 128 119 124 123 Resp 29 24 24 25 B/P (MAP) 182/93 (122) 167/113 (131) Pulse Ox 93 90 92 O2 Delivery Nasal Cannula Nasal Cannula Nasal Cannula O2 Flow Rate 3 3 3 12/31/17 21:45 Pulse 123 Resp 26 Pulse Ox 94 O2 Delivery Nasal Cannula Intake and Output 12/31/17 12/31/17 01/01/18 14:59 22:59 06:59 Output Total 400 ml Balance -400 ml (KEITH FINN DO) Constitutional General Appearance: The patient is alert, has no immediate need for airway protection and no signs of toxicity. Eyes: Pupils equal and round no pallor or injection, EOMI ENT: no pharyngeal erythema or exudates, Mucous membranes are moist Respiratory: There are no retractions, lungs are clear to auscultation. Cardiovascular: Regular rate and rhythm. pulses are equal and symmetrical Gastrointestinal: Abdomen is soft with superpubic tenderness, no masses, bowel sounds normal, no guarding, no rigidity or rebound Neurological: Cranial nerves II-XII grossly intact, no sensory or motor loss Skin: Warm and dry, no rashes. Musculoskeletal: Neck is supple non tender, no vertebral tenderness Extremities are nontender, non swollen and have full range of motion. DIFFERENTIAL DIAGNOSIS: After history and physical exam differential diagnosis was considered for UTI, eleveated INR, anemia,prostatitis (LAURORA,IMAN V DO) Medical Decision Making Data Points Result Diagram: 12/31/17211212/31/17 1735 Laboratory Hematology Test 12/31/17 17:35 12/31/17 21:13 Prothrombin Time 25.5 seconds (12.0-14.4) Prothromb Time International Ratio 2.28 Sodium Level 137 mmol/L (137-145) Potassium Level 4.3 mmol/L (3.5-5.0) Chloride Level 100 mmol/L (98-107) Carbon Dioxide Level 26 mmol/L (22-30) Blood Urea Nitrogen 20 mg/dl (9-21) Creatinine 1.60 mg/dl (0.66-1.25) Glomerular Filtration Rate Calc 41.6 Random Glucose 121 mg/dl (75-110) Calcium Level 9.5 mg/dl (8.4-10.2) Red Blood Count 3.91 M/uL (4.00-5.60) Mean Corpuscular Volume 89.2 fL (80.0-96.0) Mean Corpuscular Hemoglobin 29.7 pg (26.0-33.0) Mean Corpuscular Hemoglobin Concent 33.3 g/dL (32.0-36.0) Red Cell Distribution Width 16.2 % (11.5-14.5) Mean Platelet Volume 7.9 fL (7.2-11.1) Neutrophils (%) (Auto) 95.9 % (39.4-72.5) Lymphocytes (%) (Auto) 1.3 % (17.6-49.6) Monocytes (%) (Auto) 2.2 % (4.1-12.4) Eosinophils (%) (Auto) 0.0 % (0.4-6.7) Basophils (%) (Auto) 0.6 % (0.3-1.4) Nucleated RBC Relative Count (auto) 0.0 /100WBC Neutrophils # (Auto) 17.0 K/uL (2.0-7.4) Lymphocytes # (Auto) 0.2 K/uL (1.3-3.6) Monocytes # (Auto) 0.4 K/uL (0.3-1.0) Eosinophils # (Auto) 0.0 K/uL (0.0-0.5) Basophils # (Auto) 0.1 K/uL (0.0-0.1) Nucleated RBC Absolute Count (auto) 0.00 K/uL Peripheral Blood Smear Yes Y/N Chemistry Test 12/31/17 17:35 12/31/17 21:13 Prothrombin Time 25.5 seconds (12.0-14.4) Prothromb Time International Ratio 2.28 Glomerular Filtration Rate Calc 41.6 Calcium Level 9.5 mg/dl (8.4-10.2) White Blood Count 17.7 k/uL (4.5-11.0) Red Blood Count 3.91 M/uL (4.00-5.60) Hemoglobin 11.6 g/dL (14.0-18.0) Hematocrit 34.9 % (42.0-52.0) Mean Corpuscular Volume 89.2 fL (80.0-96.0) Mean Corpuscular Hemoglobin 29.7 pg (26.0-33.0) Mean Corpuscular Hemoglobin Concent 33.3 g/dL (32.0-36.0) Red Cell Distribution Width 16.2 % (11.5-14.5) Platelet Count 200 K/uL (150-450) Mean Platelet Volume 7.9 fL (7.2-11.1) Neutrophils (%) (Auto) 95.9 % (39.4-72.5) Lymphocytes (%) (Auto) 1.3 % (17.6-49.6) Monocytes (%) (Auto) 2.2 % (4.1-12.4) Eosinophils (%) (Auto) 0.0 % (0.4-6.7) Basophils (%) (Auto) 0.6 % (0.3-1.4) Nucleated RBC Relative Count (auto) 0.0 /100WBC Neutrophils # (Auto) 17.0 K/uL (2.0-7.4) Lymphocytes # (Auto) 0.2 K/uL (1.3-3.6) Monocytes # (Auto) 0.4 K/uL (0.3-1.0) Eosinophils # (Auto) 0.0 K/uL (0.0-0.5) Basophils # (Auto) 0.1 K/uL (0.0-0.1) Nucleated RBC Absolute Count (auto) 0.00 K/uL Peripheral Blood Smear Yes Y/N Coagulation Test 12/31/17 17:35 Prothrombin Time 25.5 seconds Prothromb Time International Ratio 2.28 (KEITH FINN DO) ED Course/Re-evaluation ED Course 12/31/2017 5:16:02 pm Will attempt to hand irrigate but if does not clear will require CBI. Check labs 12/31/2017 5:59:04 pm PTs hb is stable. pts creatine is slightly higher then he was in september however has been at that level in the past. Pts coumadin level is therapeutic for his afib. Pt still passing clots with gross bloody urine after hand irrigation. Spoke with Dr. Brown who recommend we check with a bladder scanner if he is retaining and if so then may need to change peacock. He did not feel it was necessary to check UA secondary to pt is colonized with bacteria. Bladder scanner called for. 12/31/2017 6:06:38 pm signed out to dr. Finn pending placement of 3 [address] peacock and clearing of his urine. Nursing supervisor customer complaint service called to locate 3 way peacock and cbi bag since device not in emergency room. Pt does appear to be uncomfortable and bladder is palpable. Bladder scan called for but ultimately change of peacock is needed. Decision to Disposition Date: Dec 31, 2017 (IMAN SMITH DO) ED Course A triple-lumen irrigation catheter was inserted. There was dark blood draining from the Peacock catheter. Irrigation was initiated. Patient despite 3 L of irrigation continued to have bright red blood draining from the catheter. Case was discussed with Dr. Brown. He advised admission to the medicine service. 12/31/2017 8:44:32 pm case discussed with Dr. Brown urologist on-call, who advises admission to medicine service for reversal of INR with vitamin K, repeat CBC ordered 12/31/2017 9:50:30 pm repeat CBC shows only mild drop in hematocrit from 38.5- 35. Case was discussed with Dr. Handy Jay hospitalist on-call, who will reverse his INR of 2.3 and monitor his H&H. Urology will be consult thing. Decision to Disposition Date: Dec 31, 2017 Decision to Disposition Time: 20:45 (KEITH FINN DO) Depart Departure Latest Vital Signs Vital Signs Date Time Temp Pulse Resp B/P (MAP) Pulse Ox O2 Delivery O2 Flow Rate FiO2 12/31/17 21:45 123 26 94 Nasal Cannula 12/31/17 21:15 3 12/31/17 21:00 167/113 (131) 12/31/17 17:03 99.8 (KEITH FINN DO) Impression: Primary Impression: Gross hematuria Additional Impressions: Intermittent atrial fibrillation Chronic anticoagulation Condition: Improved Disposition: Admitted from ER Referrals: ZEESHAN ANDREWS MD (PCP) LUCY BROWN MD 2 Days Problem Qualifiers IMAN SMITH DO Dec 31, 2017 17:00 KEITH FINN DO Dec 31, 2017 20:45
[2017-12-31 17:40] LABS: PLATELET COUNT, AUTOMATED 246 K/uL (150-450)
[2017-12-31 17:48] LABS: INR 2.28
[2017-12-31 21:18] LABS: PLATELET COUNT, AUTOMATED 200 K/uL (150-450)
[2017-12-31 22:32] VITALS: BP 120/74
[2017-12-31] MEDS ORDERED: NS 0.9% 3000 ML IRRIGATION BAG 3,000 ML IR ONE (22:43)
[2017-12-31] MEDS ORDERED: INFLUENZA VIRUS VAC 0.5ML SYR IM ONLY ONE (22:45)
[2017-12-31] MEDS ORDERED: PHYTONADIONE 10 MG/ML AMP SC ONE (22:45)
[2017-12-31] MEDS ORDERED: METOPROLOL TART 50 MG TAB PO SCH (22:45)
[2017-12-31] MEDS ORDERED: NS(*) 0.9% 1000 ML BAG 1,000 ML IV PRN (22:45)
[2017-12-31] MEDS: ACETAMINOPHEN 325 MG TAB PO PRN (23:09)
--- NOTE | 2017-12-31 23:14 | History & Physical ---
History of Present Illness Chief Complaint Blood in urine History of Present Illness 82yo male with PMHx significant for chronic a-fib on warfarin, urinary incontinence with chronic indwelling Berkowitz catheter, COPD, hypothyroidism. He reports having Berkowitz cath changed earlier today by his home health nurse. He had onset of gross hematuria following the change. Apparently, clots had formed and catheter was not draining. He was referred to the ER for evaluation. He had catheter changed over to irrigating cath and clots were cleared. He has con tinued to have significant hematuria. He has not had any fevers or chills. He has not had any flank pain. He did have some low abdominal pain when the cath was not draining. His labs showed his INR to be in therapeutic range. His initial Hgb/Hct were slightly low, but in his normal range. He was recommended for admission. History Problems: (1) Closed fracture of left proximal humerus Status: Resolved (2) Decubitus ulcer of buttock, stage 1 Status: Acute (3) Pneumonia Status: Resolved (4) Benign hypertension Status: Chronic (5) Heartburn Status: Chronic (6) COPD (chronic obstructive pulmonary disease) Status: Chronic (7) Urinary incontinence Status: Chronic (8) Herpes zoster Status: Chronic (9) History of stroke Status: Chronic (10) Multiple falls Status: Chronic (11) Urinary tract infection Status: Chronic (12) Atrial fibrillation Status: Chronic (13) Chronic anticoagulation Status: Chronic (14) Hypothyroidism Status: Chronic (15) Restless legs syndrome Status: Chronic (16) Sleep apnea Status: Chronic (17) History of transurethral resection of prostate Status: Chronic Home Meds Active Scripts Metoprolol Tartrate (METOPROLOL TARTRATE) 25 Mg Tablet, 1 TAB PO QHS, #90 TAB 3 Refills Prov:ZEESHAN ANDREWS MD 11/13/17 Cefuroxime Axetil (CEFUROXIME) 250 Mg Tablet, 250 MG PO BID for INFECTION, #14 TAB Prov:KEITH BERG DO 10/04/17 Sertraline Hcl (SERTRALINE HCL) 50 Mg Tablet, 1 TAB PO QDAY, #90 TAB 1 Refill Prov:ZEESHAN ANDREWS MD 09/15/17 Albuterol Sulfate (VENTOLIN HFA) 18 Gm Inh, 2 PUFF INH Q6H PRN for SHORTNESS OF BREATH, #1 INH 4 Refills Prov:ZEESHAN ANDREWS MD 08/04/17 Omeprazole (OMEPRAZOLE) 20 Mg Capsule.dr, 1 CAP PO QDAY, #90 CAP 4 Refills Prov:ZEESHAN ANDREWS MD 08/03/17 Ropinirole Hcl (ROPINIROLE HCL) 0.5 Mg Tablet, 0.5 MG PO HS, #90 TAB 1 Refill Prov:ZEESHAN ANDREWS MD 07/05/17 Tamsulosin Hcl (TAMSULOSIN HCL) 0.4 Mg Cap.er.24h, 1 CAP PO QHS, #90 CAP 3 Refills Prov:ZEESHAN ANDREWS MD 06/29/17 Warfarin Sodium (COUMADIN) 5 Mg Tablet, 5 MG PO ,,,,Sa, #90 TAB 1 Refill Prov:ZEESHAN ANDREWS MD 06/21/17 Warfarin Sodium (COUMADIN) 2.5 Mg Tablet, 2.5 MG PO Mon and Mon, #90 TAB 1 Refill Prov:ZEESHAN ANDREWS MD 06/21/17 Valacyclovir Hcl (VALACYCLOVIR) 500 Mg Tablet, 500 MG PO QAM, #90 TAB 4 Refills Prov:ZEESHAN ANDREWS MD 05/16/17 Levothyroxine Sodium (LEVOTHYROXINE SODIUM) 75 Mcg Tablet, 1 TAB PO QDAY, #90 TAB 4 Refills Prov:ZEESHAN ANDREWS MD 03/09/17 Nystatin 100,000 Unit/Gm Top Powder (NYSTATIN 100,000 UNIT/GM TOP POWDER) 15 Gm Powder, 1 RICCI TP BID, #60 G 2 Refills Prov:ZEESHAN ANDREWS MD 01/18/17 Oxygen (OXYGEN) Inha, 1.5-3 L INH cont, #0 L Prov:MARK SIMPSON MD 09/14/15 Reported Medications Cefuroxime Axetil (CEFUROXIME) 250 Mg Tablet, 250 MG PO BID for 7 Days, #14 TAB 0 Refills 10/05/17 [Alarex] No Conflict Check 10/01/17 Dextran 70/Hypromellose (ARTIFICIAL TEARS) 1 Each Droperette, 1 EACH OP BID 01/04/16 Polyethylene Glycol 8000 (POLYETHYLENE GLYCOL) 500 Gm Powder, 8.5 GM PO MON, WED, FRI 01/04/16 Allergies: Coded Allergies: pineapple (Verified Allergy, Unknown, UNKNOWN, 10/01/17) Patient History: FH: brain cancer BROTHER, FH: diabetes mellitus DAUGHTER, Age:58 FH: emphysema FATHER, , Age:79 FH: heart disease MOTHER, , Age:64 FH: lung cancer BROTHER, FH: stomach ulcer MOTHER, , Age:64 Hx Smoking: Yes Smoking Status: Former Smoker Exposure to Second Hand Smoke?: No Caffeine Intake: Coffee Caffeine/Cups Per Day: OCCASIONAL Hx Alcohol Use: Yes (OCC) Hx Substance Use Disorder: No Social Drug Use: Never Review of Systems Constitutional: No Fever, No Chills Neurological: Weakness; No Syncope Cardiovascular: No Chest Pain, No Palpitations Respiratory: Shortness of Breath (with exertion) Gastrointestinal: No Nausea, No Vomiting, No Diarrhea, No Hematemesis, No Hematochezia, No Melena Genitourinary: Other (chronic indwelling Berkowitz cath) Musculoskeletal: Impaired Mobility Psychiatric: Depression Exam Vital Signs Vital Signs Date Time Temp Pulse Resp B/P (MAP) Pulse Ox O2 Delivery O2 Flow Rate FiO2 12/31/17 22:32 99.8 124 16 120/74 (89) 95 Nasal Cannula 4.0 General Appearance: Alert, Awake Neuro: Other (no focal deficits noted/generalized weakness) Eyes: PERRLA ENT: Oropharynx Clear Cardiovascular: Other (Fairly regular slightly tachycardic with occasional ectopy) Respiratory: Clear to Auscultation Chest: No Tenderness GI: Other (Soft/BS present/healed midline laparotomy scar) : No CVA Tenderness Extremities: Warm, Perfused, Edema (trace both lower extremities) Integumentary: Generalized Fragile Skin, Other (some chronic venous stasis changes both lower extremities) Psych: Alert & Oriented X3 Medical Decision Making Data Points Result Diagram: 12/31/17211212/31/17 1735 Assessment and Plan Problems: (1) Gross hematuria Status: Acute Assessment & Plan: Most likely due to trauma related to cath change and exacerbated by the anticoagulation for his chronic a-fib. He now has irrigating cath in place per Dr. Martinez's recommendation. Will "reverse" his warfarin an ticoagulation. Will give 2 units FFP and 5mg vitamin K. Watch counts, protime/INR. Dr. Martinez will also be following. (2) COPD (chronic obstructive pulmonary disease) Status: Chronic Assessment & Plan: Continue oxygen supplementation. (3) Atrial fibrillation Status: Chronic Assessment & Plan: Will be holding/reversing his anticoagulation until we can get the hematuria under control. Will continue his low dose metoprolol. (4) Hypothyroidism Status: Chronic Assessment & Plan: Continue his L-thyroxine 75mcg PO daily. Check TSH. (5) Chronic kidney disease, stage III (moderate) Onset Date: 01/08/2014 Status: Chronic Assessment & Plan: His creatinine (1.6) is slightly higher than his baseline (1.4-1.5). Watch closely. Copies to: ZEESHAN ANDREWS MD ; Venous Thromboembolism Antithrombotics Is Pt On Any Antithrombotics?: Yes (but warfarin held due to gross hematuria) Exam Sepsis Risk: No Definite Risk YAIR VERMA MD Dec 31, 2017 23:14
[2017-12-31] MEDS: SERTRALINE HCL 50 MG TAB PO SCH (23:59)
[2018-01-01] VITALS (70 sets, daily range): BP systolic 72–145; BP diastolic 28–99; BMI 31.8
[2018-01-01] MEDS ORDERED: NS 0.9% 3000 ML IRRIGATION BAG 3,000 ML IR ONE (00:07)
[2018-01-01] MEDS ORDERED: NS(*) 0.9% 250 ML BAG 250 ML ONE (00:51)
[2018-01-01] MEDS ORDERED: NS 0.9% 3000 ML IRRIGATION BAG 6,000 ML IR ONE (00:54)
[2018-01-01] MEDS: NS 0.9% 3000 ML IRRIGATION BAG 3,000 ML in NS 0.9% 3000 ML IRRIGATION BAG 3,000 ML IR PRN ×3 (03:51→08:39)
[2018-01-01] MEDS ORDERED: BELLADONNA ALKALOIDS/OPIUM 30 MG SUPP PR PRN (05:55)
[2018-01-01 06:01] LABS: INR 1.93; PLATELET COUNT, AUTOMATED 159 K/uL (150-450)
[2018-01-01] MEDS: LEVOTHYROXINE SOD 0.075 MG TAB PO SCH (06:17)
[2018-01-01] MEDS: MORPHINE 2 MG/ML SYR IVP PRN (07:54)
[2018-01-01] MEDS ORDERED: BELLADONNA ALK/OPIUM 60MG SUPP PR PRN (08:20)
[2018-01-01] MEDS ORDERED: NS 0.9% IV ONE ×2 (08:21→08:45)
[2018-01-01] MEDS: SERTRALINE HCL 50 MG TAB PO SCH (08:42)
[2018-01-01] MEDS: PANTOPRAZOLE SOD 40 MG TABEC PO SCH (08:42)
[2018-01-01] MEDS ORDERED: NS(*) 0.9% 1000 ML BAG 1,000 ML IV PRN ×2 (08:45→10:02)
[2018-01-01] MEDS ORDERED: SERTRALINE HCL 50 MG TAB PO SCH (09:00)
--- NOTE | 2018-01-01 09:44 | Hospitalist Progress Note ---
Subjective Progress Notes Subjective Low grade fever overnight. He reports less "prostate" pain. Staff notes scrotal swelling. Physical Exam Vital Signs Date Time Temp Pulse Resp B/P (MAP) Pulse Ox O2 Delivery O2 Flow Rate FiO2 01/01/18 07:24 98.8 105 22 108/56 (73) 100 Nasal Cannula 5.0 Intake and Output 01/01/18 06:59 Intake Total 06120 ml Output Total 36749 ml Balance -943 ml Intake Oral 250 ml IV Total 607 ml Blood Product 400 ml Other 09822 ml Output Urine Total 1550 ml Post Void Residual 650 ml Other 62544 ml General Appearance: Alert, Awake, Other (Pale. Breathing comfortably) Cardiovascular: Other (Tachy, regular) Respiratory: Clear to Auscultation GI: Other (Diffuse abdominal tenderness, soft, no guarding) : No CVA Tenderness, Other (Significant scrotal swelling. Mildly tender. No erythema. Leaking urine around the Berkowitz) Extremities: No Edema Result Diagram: 01/01/1853601/01/18536 Assessment and Plan Problems: (1) UTI (urinary tract infection) Status: Acute Assessment & Plan: WBC increased with bandemia. Low grade fever. Lactate elevated. Will get blood and urine cultures, give fluid resuscitation with NS, follow Lactate and start Rocephin (based on previous urine cultures). (2) Gross hematuria Status: Acute Assessment & Plan: Most likely due to trauma related to UTI/cath change and exacerbated by the anticoagulation for his chronic a-fib. He now has irrigating cath in place per Dr. Martinez's recommendation. He was given 2 units FFP and 5mg vitamin K. INR 1.9 and he still has hematuria, so will give 2 more units of FFP. Dr. Martinez will also be following. (3) Scrotal edema Status: Acute Assessment & Plan: No report of edema while in ER, but seems to have developed overnight. No LE/thigh edema. Mildly tender on exam and no erythema. Dr. Berny pedersonk aware. (4) COPD (chronic obstructive pulmonary disease) Status: Chronic Assessment & Plan: Continue oxygen supplementation. (5) Atrial fibrillation Status: Chronic Assessment & Plan: Will be holding/reversing his anticoagulation until we can get the hematuria under control. Will continue his low dose metoprolol. (6) Hypothyroidism Status: Chronic Assessment & Plan: Continue his L-thyroxine 75mcg PO daily. Check TSH. (7) Chronic kidney disease, stage III (moderate) Onset Date: 01/08/2014 Status: Chronic Assessment & Plan: His creatinine (1.6) is slightly higher than his baseline (1.4-1.5). Watch closely. Exam Sepsis Risk: Severe Sepsis Risk MARK SIMPSON MD Jan 01, 2018 09:44
[2018-01-01] MEDS: cefTRIAXone 2 GM VIAL IVP SCH (09:49)
[2018-01-01] MEDS ORDERED: METOPROLOL TART 5 MG/5 ML VIAL IVP PRN (10:15)
[2018-01-01] MEDS: ACETAMINOPHEN 325 MG TAB PO PRN (10:16)
[2018-01-01] MEDS ORDERED: ACETAMINOPHEN 325 MG TAB PO ONE (10:25)
--- NOTE | 2018-01-01 10:45 | RADIOLOGY IMAGING REPORT ---
FACILITY: [facility] [place] PATIENT NAME: Tj Shaw : 1935 MR: [id number] V: [id number] EXAM DATE: ORDERING PHYSICIAN: MARK SIMPSON TECHNOLOGIST: Location: [facility] Patient: Tj Shaw : 1935 Visit/Account:[id number] Date of Sevice: 01/01/2018 Exam type: CHEST SINGLE AP History: increased WOB, Comparison: April 13, 2016. Findings: Calcified pleural plaques again seen along the diaphragmatic surface of both hemidiaphragms. Additio nal calcified plaque seen over the left thorax. There is diffuse interstitial prominence throughout the lungs appears similar to the prior study and is likely chronic. No focal infiltrates are seen. The cardiac silhouette is normal in size. IMPRESSION: 1. Calcified pleural plaques bilaterally raising the suspicion of possible spasticity exposure Chronic interstitial prominence of the lungs appears similar to the prior study Report Dictated By: Maria De Jesus Joiner MD at 01/01/2018 10:27 AM Report E-Signed By: Maria De Jesus Joiner MD at 01/01/2018 10:41 AM WSN:[email or web address]
[2018-01-01 11:12] LABS: PLATELET COUNT, AUTOMATED 148 K/uL (150-450)
[2018-01-01 11:17] LABS: INR 2.01
[2018-01-01] MEDS: HYDROCORTISONE 100 MG/2 ML IVP SCH ×2 (11:20→19:41)
[2018-01-01] MEDS ORDERED: NOREPINE BITAR* 4 MG/4 ML AMP 8 MG in D5W(*) 500 ML BAG 492 ML IV PRN ×2 (11:35→12:00)
[2018-01-01] MEDS ORDERED: NS(*) 0.9% 500 ML BAG 500 ML IV PRN (11:40)
--- NOTE | 2018-01-01 14:02 | RADIOLOGY IMAGING REPORT ---
FACILITY: [facility] PATIENT NAME: Tj Shaw : 1935 MR: [id number] V: [id number] EXAM DATE: ORDERING PHYSICIAN: MARK SIMPSON TECHNOLOGIST: Location: [facility] Patient: Tj Shaw : 1935 Visit/Account:[id number] Date of Sevice: 01/01/2018 TESTICULAR HISTORY: Acute severe scrotal swelling, patient on Coumadin therapy for A. fib, low platelets, chron ic kidney failure, hemoglobin 8.7 EXAMINATION: Scrotal ultrasound with duplex Doppler evaluation COMPARISON: None. FINDINGS: Testes: Right testicle measures 2.4 x 2.3 x 2.4 cm. With normal blood flow within the right testicle Left testicle measures 2.6 x 2.4 x 2.4 cm. With normal blood flow within the left testicle There is severe edema of the skin thickening surrounding both sides of the scrotal sac. There is ext ensive complex echogenic material within the left-sided the scrotal sac and to lesser extent within t he right side of the scrotal sac. This material did not appear mobile by technologist communication. Due to the acute findings this could represent a large hematoma. Also noted along the anterior lef t side scrotum echogenic regions with acoustic shadowing which could represent bowel within a hernia Epididymides: Not well seen IMPRESSION: There is severe edema and skin thickening surrounding both sides of the scrotal sac.. There is exten sive complex echogenic material within the left side of the scrotal sac and to a lesser extent the ri ght side of the scrotal sac. This material was apparently nonmobile could represent a very large hem atoma given the acute finding.. Also noted along the anterior left side of the scrotum echogenic reg ions with acoustic shadowing which could represent bowel within the hernia. Report Dictated By: Maria De Jesus Joiner MD at 01/01/2018 1:36 PM Report E-Signed By: Maria De Jesus Joiner MD at 01/01/2018 1:58 PM WSN:[email or web address]
[2018-01-01 14:12] LABS: PLATELET COUNT, AUTOMATED 133 K/uL (150-450)
[2018-01-01] MEDS ORDERED: WARF-1 PO (14:17)
[2018-01-01] MEDS ORDERED: WARF2.5T62 PO (14:17)
[2018-01-01 14:20] LABS: INR 1.79
[2018-01-01] MEDS ORDERED: ROPI0.5T25 PO (14:25)
--- NOTE | 2018-01-01 15:52 | RADIOLOGY IMAGING REPORT ---
FACILITY: [facility] PATIENT NAME: Tj Shaw : 1935 MR: [id number] V: [id number] EXAM DATE: ORDERING PHYSICIAN: MARK SIMPSON TECHNOLOGIST: [facility] Patient: Tj Shaw : 1935 Visit/Account:[id number] Date of Sevice: 01/01/2018 CHEST SINGLE AP INDICATION: central line attempt in right IJ COMPARISON: 01/01/2018 FINDINGS: Cardiac silhouette is upper limits of normal with increased pulmonary vascular congestion. There is no focal infiltrate or lobar consolidation. There is no pneumothorax or pleural effusion. Calcified pleural plaques are present IMPRESSION: 1. No evidence of pneumothorax after failed central line placement Report Dictated By: Eleuterio Foreman at 01/01/2018 3:47 PM Report E-Signed By: Eleuterio Foreman at 01/01/2018 3:48 PM WSN:[email or web address]
--- NOTE | 2018-01-01 15:53 | Procedure Note ---
Central Line Procedure Note Consent Signed: Yes Central Line Lumen: Triple Central Line Procedure: Chlorhexidine Prep Central Line Position: R Internal Jugular Anesthesia Used: 1% Lidocaine CC's of Anesthesia: 2 Complications: Line wasn't able to be placed Comment The US was used to identify the RIJ. It was cannulated on the first attempt, but the guidewire couldn't be threaded past about 10cm. Repeat attempts at cannulation were attempted more distally, but were unsuccessful. CXR didn't show any pneumothorax. MARK SIMPSON MD Jan 01, 2018 15:53
[2018-01-01] MEDS: ACETAMINOPHEN 500 MG TAB PO PRN (18:18)
[2018-01-01] MEDS: METOPROLOL TART 50 MG TAB PO SCH (19:44)
[2018-01-02] VITALS (63 sets, daily range): BP systolic 110–151; BP diastolic 59–109
--- NOTE | 2018-01-02 01:22 | CONSULTATION ---
EVENT DATE: January 01, 2018 HISTORY OF PRESENT ILLNESS This is an 82-year-old white male about whom I was contacted by the emergency room physician last p.m., Dr. Finn and another physician. They were complaining of bleeding from the urinary tract following Berkowitz placement that day by the home health nurse. Patient reportedly was bleeding with clots, and cath had been replaced in the emergency room. The initial physician, I believe Dr. Lancaster, discussed three- way Berkowitz and possible need for vitamin K or Amicar. Emergency room physician elected to place a three-way Berkowitz. The bladder was scanned pre-placement, and there was approximately 500 mL of fluid in the bladder. After the three-way Berkowitz placement, reportedly the bladder drained and irrigated satisfactorily with continuous bladder irrigation. Patient was admitted for observation and treatment. Patient had to be irrigated frequently/continuously over the night. Initial hemoglobin and hematocrit were 12 and 34. Current hemoglobin and hematocrit are pending. When seen in the patient's room this a.m., the Berkowitz contained grossly bloody urine with some clots and was not draining properly. It was my clinical impression that the Berkowitz was misplaced or dislodged. The Berkowitz was removed, and indeed it was not in proper position. A whistle-tipped 22 Berkowitz passed easily into the bladder. Relatively clear yellow urine was obtained with minimal pink-tinged urine. Urine was obtained for culture and sensitivity. The three-way Berkowitz was then followed and was placed satisfactorily, and 30 mL was placed into balloon. The Berkowitz still continued to drain yellow-tinged urine with a slight pink tinge. No clots were visible. Irrigation was discontinued, and the Berkowitz has continued to drain satisfactorily. The patient states that he is comfortable at this point. IMPRESSION 1. Bleeding from the urinary tract following Berkowitz replacement. 2. Misplaced or dislodged Berkowitz. TREATMENT 1. Replacement of Berkowitz to continuous drainage without need for irrigation. 2. Urine obtained for culture and sensitivity. The hospitalist will order appropriate antibiotics to cover the patient's manipulation and care. Also, on clinical examination, patient had a grossly edematous scrotum. Treatment is scrotal elevation and ice packs. Thank you for letting me share in the care of your patient. I will follow along. KENNEY
[2018-01-02] MEDS: HYDROCORTISONE 100 MG/2 ML IVP SCH ×3 (03:55→20:46)
[2018-01-02] MEDS: LEVOTHYROXINE SOD 0.075 MG TAB PO SCH (05:49)
[2018-01-02 05:56] LABS: PLATELET COUNT, AUTOMATED 96 K/uL (150-450)
[2018-01-02 06:02] LABS: INR 1.58
[2018-01-02] MEDS: SERTRALINE HCL 50 MG TAB PO SCH (09:01)
[2018-01-02] MEDS: cefTRIAXone 2 GM VIAL IVP SCH (09:01)
[2018-01-02] MEDS: PANTOPRAZOLE SOD 40 MG TABEC PO SCH (09:01)
[2018-01-02] MEDS: ACETAMINOPHEN 500 MG TAB PO PRN ×2 (09:01→18:11)
--- NOTE | 2018-01-02 09:55 | Hospitalist Progress Note ---
Subjective Progress Notes Subjective This patient was admitted for hematuria. He was transferred to the ICU yesterday, but is doing much better today. Patient Complains of: Cardiovascular: No: Chest Pain Respiratory: No: Shortness of Breath Physical Exam Vital Signs Date Time Temp Pulse Resp B/P (MAP) Pulse Ox O2 Delivery O2 Flow Rate FiO2 01/02/18 07:49 87 01/02/18 07:45 97.7 26 129/71 (90) 95 Nasal Cannula 2.5 Intake and Output 01/02/18 06:59 Intake Total 4238.6 ml Output Total 735 ml Balance 3503.6 ml Intake Oral 787 ml IV Total 2563.6 ml Blood Product 888 ml Output Urine Total 710 ml Other 25 ml # Bowel Movements 2 Cardiovascular: Regular Rate and Rhythm Respiratory: Clear to Auscultation : Other (Scrotal swelling.) Result Diagram: 01/02/18 0525 01/02/18 0525 Item Value Date Time Urine RBC 17 /HPF 01/02/18 0820 Item Value Date Time Prothromb Time International Ratio 1.58 01/02/18 0525 Assessment and Plan Problems: (1) UTI (urinary tract infection) Status: Acute Assessment & Plan: He did have a fever and elevated WBC. His urine culture is pending, but blood cultures are positive for gram negative rods. He is on empiric treatment with ceftriaxone. His fever has resolved. The WBC is abhishek vated today, but he was started on stress dose hydrocortisone. (2) Septic shock Assessment & Plan: He did have an elevated lactate and required vasopressor support. His lactate has now improved and he is maintaining his blood pressure independently. We are weaning the dose hydrocortisone. (3) Gross hematuria Status: Acute Assessment & Plan: Most likely due to trauma related to UTI/cath change and exacerbated by the anticoagulation for his chronic a-fib. He now has irrigating cath in place per Dr. Martinez's recommendation. He was given 2 units FFP and 5mg vitamin K. INR 1.9 and he still has hematuria, so will give 2 more units of FFP. Dr. Martinez will also be following. (4) Scrotal edema Status: Acute Assessment & Plan: He likely had bleeding into the scrotum. It has stabilized and the size is decreased today. (5) COPD (chronic obstructive pulmonary disease) Status: Chronic Assessment & Plan: Continue oxygen supplementation. (6) Atrial fibrillation Status: Chronic Assessment & Plan: He is on chronic treatment with metoprolol and warfarin. The metoprolol is on hold since he was requiring vasopressor support less than 24hrs ago. The warfarin was reversed as above. He is currently in sinus rhythm. (7) Hypothyroidism Status: Chronic Assessment & Plan: Continue his L-thyroxine 75mcg PO daily. His TSH is normal. (8) Chronic kidney disease, stage III (moderate) Onset Date: 01/08/2014 Status: Chronic (9) ARF (acute renal failure) Status: Resolved Assessment & Plan: His creatinine is increased slightly today. We will continue IV fluids overnight and repeat a chemistry in the morning. Exam Sepsis Risk: Severe Sepsis Risk Problem Qualifiers (1) UTI (urinary tract infection): Hematuria presence: with hematuria DELORIS SIMMONS DO Jan 02, 2018 09:55
[2018-01-02] MEDS: NS(*) 0.9% 1000 ML BAG 1,000 ML IV PRN ×2 (11:27→21:36)
--- NOTE | 2018-01-02 11:44 | Antimicrobial Stewardship ---
Antimicrobial Stewardship Empiricly appropriate: Yes Support empiric regimen: Yes Approriate Cultures done: Yes (Urine Cx pending, Blood Cx 4/4 bottles growing GNR, ID & S pending) Gram stain show Microbs: Yes (Blood Cx - GNR) Renal/Hepatic dosing: Yes (Elevated Scr, decreased CrCL) Appropriate dose for site: Yes Monitored for Toxicities: Yes Clinically stable/improving: Yes IV to PO Opportunity: No Determine cumulative duration: GNR Bacteremia - UTI - today is day 2 of IV antibiotics Determine standard duration: 7-14 days Verified plan for regimen: Yes Comment 82 yo M with history of urinary incontinence, atrial fibrillation, COPD, CKD, and hypothyroidism who presented to the ED with hematuria s/p peacock exchange by home health. 12/31/17- Tmax 99.8, up to 102.9 WBC 21 (49% neuts + 47% bands), lactate 3.5, BP 80-90s over 50-70s Hgb dropped to 8.3-- transfused 1 u PRBCs, INR was 2.28 on admission, given FFP x 4, INR now 1.58 Scr 1.6, now 1.8 Chest xray- pleural plaques, no infiltrates Testicular US- showed large hematoma, enlarged scrotum UA showed large leukocyte esterase, RBC 333, WBC 248, Squamous epis (-) Blood Cx - 4/4 bottles growing GNR - ID and sens pending A/P: 1. Bacteremia/Sepsis: Febrile, tachycardic, bandemia/leukocytosis, lactate 3.5 (now 1.2) hypotensive---fluid resuscitated, antibiotics initiated. Likely urinary tract is source of bacteremia. No history of MDROs, Blood Cx 4/4 growing GNR. Started on Ceftriaxone 2g IV Q24h on 01/01, today is day 2 of antibiotics. Stress dose steroids hydrocortisone 100mg IV q8h, decreased today to 50mg IV q8h. Continue present management, adjust based on cultures and sensitivities. Michelle Cheek, PharmD, BCOP MICHELLE CHEEK Jan 02, 2018 11:44
[2018-01-03] VITALS (36 sets, daily range): BP systolic 135–157; BP diastolic 69–89
[2018-01-03] MEDS: HYDROCORTISONE 100 MG/2 ML IVP SCH (03:53)
[2018-01-03 05:28] LABS: PLATELET COUNT, AUTOMATED 99 K/uL (150-450)
[2018-01-03 05:32] LABS: INR 1.35
[2018-01-03] MEDS: LEVOTHYROXINE SOD 0.075 MG TAB PO SCH (05:56)
[2018-01-03] MEDS: cefTRIAXone 2 GM VIAL IVP SCH (09:14)
[2018-01-03] MEDS: valACYclovir HCL 500 MG TAB PO SCH (09:15)
[2018-01-03] MEDS: SERTRALINE HCL 50 MG TAB PO SCH (09:15)
[2018-01-03] MEDS: PANTOPRAZOLE SOD 40 MG TABEC PO SCH (09:15)
[2018-01-03] MEDS: METOPROLOL TART 50 MG TAB PO SCH ×2 (09:15→21:00)
[2018-01-03] MEDS: ACETAMINOPHEN 500 MG TAB PO PRN (10:02)
[2018-01-03] MEDS ORDERED: LEVO75TA73 PO (10:50)
[2018-01-03] MEDS ORDERED: LOTE5GEL OS (11:07)
[2018-01-03] MEDS ORDERED: LOTE5DRO8 OS (11:09)
[2018-01-03] MEDS ORDERED: LATODPT OS (11:09)
[2018-01-03] MEDS ORDERED: CALAZIME ×2 (11:18)
[2018-01-03] MEDS ORDERED: CALAZIME TOP (11:18)
[2018-01-03] MEDS ORDERED: ASCO-182 PO (11:18)
[2018-01-03] MEDS ORDERED: WARF2.5T11 PO (11:41)
[2018-01-03] MEDS ORDERED: WARF5TAB23 PO (11:41)
[2018-01-03] MEDS ORDERED: WARFARIN SOD 5 MG TAB PO ONE (13:00)
--- NOTE | 2018-01-03 15:09 | Hospitalist Progress Note ---
Subjective Progress Notes Subjective 82M admitted for sepsis, bacteremia. LIA overnight, improving, off pressors. Continue IV Abx, plan transfer to floor today. Patient Complains of: Cardiovascular: No: Chest Pain, Palpitations Gastrointestinal: No Nausea, No Vomiting Physical Exam Vital Signs Date Time Temp Pulse Resp B/P (MAP) Pulse Ox O2 Delivery O2 Flow Rate FiO2 01/03/18 14:30 84 31 142/78 (99) 92 Nasal Cannula 3.0 01/03/18 12:00 98.1 Intake and Output 01/03/18 06:58 Intake Total 3300 ml Output Total 1380 ml Balance 1920 ml Intake Oral 1090 ml IV Total 2210 ml Output Urine Total 1380 ml General Appearance: Alert, Awake, No Acute Distress Neuro: No Gross deficits Eyes: PERRLA ENT: Normal Cardiovascular: Normal Rhythm & Peripheral Pulses Respiratory: No Respiratory Distress GI: Soft and Non-Tender Extremities: Soft and Non Tender, Warm, Pulses, Perfused Integumentary: Skin Intact without Lesion / Mass Result Diagram: 01/03/1850901/03/18509 Assessment and Plan Problems: (1) UTI (urinary tract infection) Status: Acute Assessment & Plan: He did have a fever and elevated WBC. His urine culture and blood cultures are growing Providencia rettgeri susceptible to ceftriaxone. His fever has resolved. The WBC remains elevated but he was stress dosed with hydrocortisone. (2) Septic shock Assessment & Plan: He did have an elevated lactate and required vasopressor support. His lactate has now improved and he is maintaining his blood pressure independently. (3) Gross hematuria Status: Acute Assessment & Plan: Most likely due to trauma related to UTI/cath change and exa cerbated by the anticoagulation for his chronic a-fib. He now has irrigating cath in place per Dr. Martinez's recommendation. He was given 2 units FFP and 5mg vitamin K. INR 1.9 after Vit K and was still bleeding so received FFP. Dr. Martinez following, ok with resuming warfarin. (4) Scrotal edema Status: Acute Assessment & Plan: He likely had bleeding into the scrotum. It has stabilized and the size is decreased today. (5) COPD (chronic obstructive pulmonary disease) Status: Chronic Assessment & Plan: Continue oxygen supplementation. (6) Atrial fibrillation Status: Chronic Assessment & Plan: He is on chronic treatment with metoprolol and warfarin. He is currently in sinus rhythm. Warfarin resumed after reversal. (7) Hypothyroidism Status: Chronic Assessment & Plan: Continue his L-thyroxine 75mcg PO daily. His TSH is normal. (8) Chronic kidney disease, stage III (moderate) Onset Date: 01/08/2014 Status: Chronic (9) ARF (acute renal failure) Status: Resolved Assessment & Plan: Improved. Exam Sepsis Risk: Sepsis Risk Problem Qualifiers (1) UTI (urinary tract infection): Hematuria presence: with hematuria PRISCILA SHELLEY DO Jan 03, 2018 15:09
[2018-01-04] VITALS (7 sets, daily range): BP systolic 124–158; BP diastolic 58–87; Ht 175.3 cm; Wt 105.7 kg
[2018-01-04] MEDS: LEVOTHYROXINE SOD 0.075 MG TAB PO SCH (05:58)
[2018-01-04 06:44] LABS: PLATELET COUNT, AUTOMATED 135 K/uL (150-450)
[2018-01-04 06:52] LABS: INR 1.26
[2018-01-04] MEDS: cefTRIAXone 2 GM VIAL IVP SCH (09:48)
[2018-01-04] MEDS: METOPROLOL TART 50 MG TAB PO SCH ×2 (09:48→20:45)
[2018-01-04] MEDS: valACYclovir HCL 500 MG TAB PO SCH (09:48)
[2018-01-04] MEDS: SERTRALINE HCL 50 MG TAB PO SCH (09:49)
[2018-01-04] MEDS: PANTOPRAZOLE SOD 40 MG TABEC PO SCH (09:49)
[2018-01-04] MEDS: APAP/HYDROCODONE 325/5 TAB PO PRN ×2 (11:01→18:22)
[2018-01-04] MEDS: ALBUTEROL/IPRATROPIUM 3 ML NEB NEB SCH ×2 (11:11→17:21)
[2018-01-04] MEDS: WARFARIN SOD 5 MG TAB PO SCH (14:08)
--- NOTE | 2018-01-04 14:48 | Hospitalist Progress Note ---
Subjective Progress Notes Subjective He has no complaints this morning. He had no acute events overnight. Patient Complains of: Cardiovascular: No: Chest Pain Respiratory: No: Shortness of Breath Physical Exam Vital Signs Date Time Temp Pulse Resp B/P (MAP) Pulse Ox O2 Delivery O2 Flow Rate FiO2 01/04/18 11:14 94 Nasal Cannula 3.0 01/04/18 11:14 73 16 01/04/18 11:01 99.4 153/71 (98) Intake and Output 01/03/18 23:58 Intake Total 2681 ml Output Total 975 ml Balance 1706 ml Intake Oral 1260 ml IV Total 1421 ml Output Urine Total 975 ml General Appearance: Alert, Awake, No Acute Distress, Afebrile Neuro: No Gross deficits Cardiovascular: Regular Rate and Rhythm Respiratory: No Respiratory Distress, Other (expiratory wheezes noted) GI: Soft and Non-Tender Psych: Alert & Oriented X3, Appropriate Mood & Affect Result Diagram: 01/04/18 0555 01/04/18 0555 Assessment and Plan Problems: (1) UTI (urinary tract infection) Status: Acute Assessment & Plan: He did have a fever and elevated WBC. His urine culture and blood cultures are growing Providencia rettgeri susceptible to ceftriaxone. His fever has resolved. The WBC remains elevated but he was stress dosed with hydrocortisone. (2) Septic shock Assessment & Plan: He did have an elevated lactate and required vasopressor support. His lactate has now improved and he is maintaining his blood pressure independently. (3) Gross hematuria Status: Acute Assessment & Plan: Most likely due to trauma related to UTI/cath change and exacerbated by the anticoagulation for his chronic a-fib. He had irrigating cath in place per Dr. Martinez's recommendation. He was given 2 units FFP and 5mg vitamin K. INR 1.9 after Vit K and was still bleeding so received FFP. Dr. Martinez following, ok with resuming warfarin. (4) Scrotal edema Status: Acute Assessment & Plan: He likely had bleeding into the scrotum. It has stabilized and the size is decreased today. (5) COPD (chronic obstructive pulmonary disease) Status: Chronic Assessment & Plan: Continue oxygen supplementation. He has increased wheezes today, and does feel more SOB. Will try nebulizers today. (6) Atrial fibrillation Status: Chronic Assessment & Plan: He is on chronic treatment with metoprolol and warfarin. He is currently in sinus rhythm. Warfarin resumed after reversal. (7) Hypothyroidism Status: Chronic Assessment & Plan: Continue his L-thyroxine 75mcg PO daily. His TSH is normal. (8) Chronic kidney disease, stage III (moderate) Onset Date: 01/08/2014 Status: Chronic (9) ARF (acute renal failure) Status: Resolved Assessment & Plan: Improved. Exam Sepsis Risk: Sepsis Risk Problem Qualifiers (1) UTI (urinary tract infection): Hematuria presence: with hematuria SYLVESTER ZHANG [employer] Jan 04, 2018 14:48
[2018-01-04] MEDS: MORPHINE 2 MG/ML SYR IVP PRN (20:46)
[2018-01-05 03:10] VITALS: BP 153/76
[2018-01-05] MEDS: LEVOTHYROXINE SOD 0.075 MG TAB PO SCH (05:41)
[2018-01-05] MEDS: ALBUTEROL/IPRATROPIUM 3 ML NEB NEB SCH ×3 (05:41→17:05)
[2018-01-05] MEDS: APAP/HYDROCODONE 325/5 TAB PO PRN ×2 (06:08→15:47)
[2018-01-05 06:11] LABS: INR 1.39
[2018-01-05 06:32] LABS: PLATELET COUNT, AUTOMATED 145 K/uL (150-450)
[2018-01-05 08:08] VITALS: BP 144/78
[2018-01-05] MEDS: METOPROLOL TART 50 MG TAB PO SCH ×2 (09:11→20:19)
[2018-01-05] MEDS: SERTRALINE HCL 50 MG TAB PO SCH (09:11)
[2018-01-05] MEDS: valACYclovir HCL 500 MG TAB PO SCH (09:11)
[2018-01-05] MEDS: cefTRIAXone 2 GM VIAL IVP SCH (09:11)
[2018-01-05] MEDS: PANTOPRAZOLE SOD 40 MG TABEC PO SCH (09:11)
[2018-01-05] MEDS ORDERED: MAGNESIUM HYDROXIDE* 30ML UDCP PO PRN (09:15)
[2018-01-05] MEDS ORDERED: BISACODYL 10 MG SUPP PR PRN (09:15)
[2018-01-05] MEDS: DOCUSATE SODIUM 100 MG CAP PO SCH ×2 (09:44→20:19)
[2018-01-05 11:00] VITALS: BP 131/68
--- NOTE | 2018-01-05 11:25 | Hospitalist Progress Note ---
Subjective Progress Notes Subjective He has no complaints this morning. He feels the nebulizers have helped his breathing. Patient Complains of: Cardiovascular: No: Chest Pain Respiratory: No: Shortness of Breath Physical Exam Vital Signs Date Time Temp Pulse Resp B/P (MAP) Pulse Ox O2 Delivery O2 Flow Rate FiO2 01/05/18 11:16 68 18 01/05/18 11:11 92 Nasal Cannula 3.0 01/05/18 08:08 98.0 144/78 (100) Intake and Output 01/05/18 06:58 Intake Total 540 ml Output Total 1250 ml Balance -710 ml Intake Oral 540 ml Output Urine Total 1250 ml General Appearance: Alert, Awake, No Acute Distress, Afebrile Neuro: No Gross deficits Cardiovascular: Regular Rate and Rhythm Respiratory: No Respiratory Distress, Clear to Auscultation GI: Soft and Non-Tender : Other (edema noted to scrotum) Psych: Alert & Oriented X3, Appropriate Mood & Affect Result Diagram: 01/05/18 0535 01/05/18 0535 Assessment and Plan Problems: (1) UTI (urinary tract infection) Status: Acute Assessment & Plan: He did have a fever and elevated WBC. His urine culture and blood cultures are growing Providencia rettgeri susceptible to ceftriaxone. His fever has resolved. The WBC has been dropping steadily. (2) Septic shock Assessment & Plan: He did have an elevated lactate and required vasopressor support. His lactate has now improved and he is maintaining his blood pressure independently. (3) Gross hematuria Status: Acute Assessment & Plan: Most likely due to trauma related to UTI/cath change and exacerbated by the anticoagulation for his chronic a-fib. He had irrigating cath in place per Dr. Martinez's recommendation. He was given 2 units FFP and 5mg vitamin K. INR 1.9 after Vit K and was still bleeding so received FFP. Dr. Martinez following, ok with resuming warfarin. (4) Scrotal edema Status: Acute Assessment & Plan: He likely had bleeding into the scrotum. It has stabilized and the size is decreased today. (5) COPD (chronic obstructive pulmonary disease) Status: Chronic Assessment & Plan: Continue oxygen supplementation. He has increased wheezes today, and does feel more SOB. Will try nebulizers today. (6) Atrial fibrillation Status: Chronic Assessment & Plan: He is on chronic treatment with metoprolol and warfarin. He is currently in sinus rhythm. Warfarin resumed after reversal. (7) Hypothyroidism Status: Chronic Assessment & Plan: Continue his L-thyroxine 75mcg PO daily. His TSH is normal. (8) Chronic kidney disease, stage III (moderate) Onset Date: 01/08/2014 Status: Chronic (9) ARF (acute renal failure) Status: Resolved Assessment & Plan: Improved. Exam Sepsis Risk: No Definite Risk Problem Qualifiers (1) UTI (urinary tract infection): Hematuria presence: with hematuria SYLVESTER ZHANGP Jan 05, 2018 11:25
[2018-01-05] MEDS: WARFARIN SOD 5 MG TAB PO SCH (12:51)
[2018-01-05] MEDS ORDERED: WARFARIN SOD 2.5 MG TAB PO SCH (13:00)
[2018-01-05 15:21] VITALS: BP 146/84
[2018-01-05 19:11] VITALS: BP 152/83
[2018-01-05 23:04] VITALS: BP 149/84
[2018-01-06 03:23] VITALS: BP 155/83
[2018-01-06] MEDS: LEVOTHYROXINE SOD 0.075 MG TAB PO SCH (05:37)
[2018-01-06] MEDS: ALBUTEROL/IPRATROPIUM 3 ML NEB NEB SCH ×3 (05:50→17:10)
[2018-01-06 06:09] LABS: PLATELET COUNT, AUTOMATED 168 K/uL (150-450)
[2018-01-06 06:17] LABS: INR 1.6
[2018-01-06 08:02] VITALS: BP 158/79
[2018-01-06] MEDS: valACYclovir HCL 500 MG TAB PO SCH (09:15)
[2018-01-06] MEDS: PANTOPRAZOLE SOD 40 MG TABEC PO SCH (09:15)
[2018-01-06] MEDS: DOCUSATE SODIUM 100 MG CAP PO SCH ×2 (09:15→20:45)
[2018-01-06] MEDS: POLYETHYLENE GLYCOL 17 GM PKT PO SCH (09:15)
[2018-01-06] MEDS: METOPROLOL TART 50 MG TAB PO SCH ×2 (09:15→20:45)
[2018-01-06] MEDS: LEVOFLOXACIN 500 MG TAB PO SCH (09:15)
[2018-01-06] MEDS: SERTRALINE HCL 50 MG TAB PO SCH (09:15)
[2018-01-06] MEDS: APAP/HYDROCODONE 325/5 TAB PO PRN (09:22)
[2018-01-06 12:25] VITALS: BP 159/73
[2018-01-06] MEDS: WARFARIN SOD 5 MG TAB PO SCH (12:25)
--- NOTE | 2018-01-06 12:54 | Hospitalist Progress Note ---
Subjective Progress Notes Subjective He reports feeling improved, but still weak. No fever for >48 hours. Physical Exam Vital Signs Date Time Temp Pulse Resp B/P (MAP) Pulse Ox O2 Delivery O2 Flow Rate FiO2 01/06/18 12:25 97.8 108 20 159/73 (101) 99 Nasal Cannula 4.0 Intake and Output 01/06/18 06:58 Intake Total 1256 ml Output Total 2125 ml Balance -869 ml Intake Oral 1256 ml Output Urine Total 2125 ml General Appearance: Alert, Awake Cardiovascular: Regular Rate and Rhythm Respiratory: Clear to Auscultation GI: Soft and Non-Tender : Other (scrotum swollen/no open areas or drainage) Psych: Alert & Oriented X3 Result Diagram: 01/06/18 0538 01/06/18 0558 Assessment and Plan Problems: (1) UTI (urinary tract infection) Status: Acute Assessment & Plan: He did have a fever and elevated WBC. His urine culture and blood cultures are growing Providencia rettgeri susceptible to ceftriaxone. His fever has resolved. His WBC count has been improving steadily. Will switch to Levaquin to complete his course of therapy. He is still rather weak and will most likely need prolonged rehabilitative therapy. (2) Septic shock Assessment & Plan: He did have an elevated lactate and required short term vasopressor support. His lactate normalized and he is maintaining his blood pressure independently. (3) Gross hematuria Status: Acute Assessment & Plan: Most likely due to trauma related to UTI/cath change and exacerbated by the anticoagulation for his chronic a-fib. He had irrigating cath in place per Dr. Martinez's recommendation. He was given FFP and vitamin K for reversal. Dr. Martinez has been following. We have now resumed his warfarin - INR is 1.6. (4) Scrotal edema Status: Acute Assessment & Plan: He likely had some bleeding into the scrotum, per Dr. Martinez. It has stabilized and the size is slowly decreasing. (5) COPD (chronic obstructive pulmonary disease) Status: Chronic Assessment & Plan: Continue oxygen supplementation and nebulizer therapy. (6) Atrial fibrillation Status: Chronic Assessment & Plan: He is on chronic treatment with metoprolol and warfarin. He is currently in sinus rhythm. Warfarin resumed after reversal for the hematuria. (7) Hypothyroidism Status: Chronic Assessment & Plan: Continue his L-thyroxine 75mcg PO daily. His TSH is normal. (8) Chronic kidney disease, stage III (moderate) Onset Date: 01/08/2014 Status: Chronic (9) ARF (acute renal failure) Status: Resolved Assessment & Plan: Improved. (10) Anemia Onset Date: 02/05/2014 Status: Acute Assessment & Plan: Most likely due to blood loss. Slightly improved. Monitor. Exam Sepsis Risk: Sepsis Risk Problem Qualifiers (1) UTI (urinary tract infection): Hematuria presence: with hematuria YAIR VERMA MD Jan 06, 2018 12:54
[2018-01-06 15:07] VITALS: BP 138/76
[2018-01-06] MEDS ORDERED: EYE15DRO2 OS (15:45)
[2018-01-06] MEDS: PATIENT'S OWN MED OS SCH ×3 (16:54→20:45)
[2018-01-06 19:47] VITALS: BP 134/73
[2018-01-06 23:14] VITALS: BP 152/97
[2018-01-07 03:33] VITALS: BP 158/72
[2018-01-07] MEDS: LEVOTHYROXINE SOD 0.075 MG TAB PO SCH (05:40)
[2018-01-07] MEDS: ALBUTEROL/IPRATROPIUM 3 ML NEB NEB SCH ×3 (05:54→17:22)
[2018-01-07 06:58] LABS: INR 1.76
[2018-01-07 08:12] VITALS: BP 147/75
[2018-01-07] MEDS: PATIENT'S OWN MED OS SCH ×6 (09:00→20:26)
[2018-01-07] MEDS: POLYETHYLENE GLYCOL 17 GM PKT PO SCH (09:40)
[2018-01-07] MEDS: SERTRALINE HCL 50 MG TAB PO SCH (09:41)
[2018-01-07] MEDS: METOPROLOL TART 50 MG TAB PO SCH ×2 (09:41→20:25)
[2018-01-07] MEDS: DOCUSATE SODIUM 100 MG CAP PO SCH ×2 (09:41→20:25)
[2018-01-07] MEDS: valACYclovir HCL 500 MG TAB PO SCH (09:41)
[2018-01-07] MEDS: LEVOFLOXACIN 500 MG TAB PO SCH (09:41)
[2018-01-07] MEDS: PANTOPRAZOLE SOD 40 MG TABEC PO SCH (09:41)
--- NOTE | 2018-01-07 10:45 | Hospitalist Progress Note ---
Subjective Progress Notes Subjective 82M admitted for sepsis, hematuria. LIA overnight, improving. Patient Complains of: Gastrointestinal: No Nausea, No Vomiting Physical Exam Vital Signs Date Time Temp Pulse Resp B/P (MAP) Pulse Ox O2 Delivery O2 Flow Rate FiO2 01/07/18 09:52 92 Nasal Cannula 3.0 01/07/18 08:12 98.4 94 18 147/75 (99) Intake and Output 01/07/18 06:58 Intake Total 1260 ml Output Total 1400 ml Balance -140 ml Intake Oral 1260 ml Output Urine Total 1400 ml General Appearance: Alert, Awake, No Acute Distress Neuro: No Gross deficits ENT: Normal Neck: No Masses Cardiovascular: Normal Rhythm & Peripheral Pulses Respiratory: Clear to Auscultation GI: Soft and Non-Tender : Other (scrotal and penile edema, + Berkowitz) Extremities: Soft and Non Tender, Warm, Pulses, Perfused, Edema Integumentary: Skin Intact without Lesion / Mass Psych: Alert & Oriented X3 Result Diagram: 01/06/18 0538 01/06/18 0558 Assessment and Plan Problems: (1) UTI (urinary tract infection) Status: Acute Assessment & Plan: He did have a fever and elevated WBC. His urine culture and blood cultures are growing Providencia rettgeri susceptible to ceftriaxone. His fever has resolved. His WBC count has been improving steadily. Levaquin to complete his course of therapy. He is still rather weak awaiting placement in longer term rehab. (2) Septic shock Assessment & Plan: He did have an elevated lactate and required short term vasopressor support. His lactate normalized and he is maintaining his blood pressure independently. (3) Gross hematuria Status: Acute Assessment & Plan: Most likely due to trauma related to UTI/cath change and exacerbated by the anticoagulation for his chronic a-fib. He had irrigating cath in place per Dr. Martinez's recommendation. He was given FFP and vitamin K for reversal. Dr. Martinez has been following. We have now resumed his warfarin. (4) Scrotal edema Status: Acute Assessment & Plan: He likely had some bleeding into the scrotum, per Dr. Martinez. It has stabilized and the size is slowly decreasing. (5) COPD (chronic obstructive pulmonary disease) Status: Chronic Assessment & Plan: Continue oxygen supplementation and nebulizer therapy. (6) Atrial fibrillation Status: Chronic Assessment & Plan: He is on chronic treatment with metoprolol and warfarin. He is currently in sinus rhythm. Warfarin resumed after reversal for the hematuria. (7) Hypothyroidism Status: Chronic Assessment & Plan: Continue his L-thyroxine 75mcg PO daily. His TSH is normal. (8) Chronic kidney disease, stage III (moderate) Onset Date: 01/08/2014 Status: Chronic (9) ARF (acute renal failure) Status: Resolved Assessment & Plan: Improved. (10) Anemia Onset Date: 02/05/2014 Status: Acute Assessment & Plan: Most likely due to blood loss. Slightly improved. Monitor. Exam Sepsis Risk: No Definite Risk Problem Qualifiers (1) UTI (urinary tract infection): Hematuria presence: with hematuria PRISCILA SHELLEY DO Jan 07, 2018 10:45
[2018-01-07] MEDS ORDERED: WARFARIN SOD 2.5 MG TAB PO SCH (13:00)
[2018-01-07 14:10] VITALS: BP 138/76
[2018-01-07 19:15] VITALS: BP 144/75
[2018-01-07 23:08] VITALS: BP 152/84
[2018-01-08 03:42] VITALS: BP 141/75
[2018-01-08 04:40] VITALS: BP 151/65
[2018-01-08 06:00] LABS: PLATELET COUNT, AUTOMATED 245 K/uL (150-450)
[2018-01-08] MEDS ORDERED: cefTRIAXone(*) 2 GM VIAL 2 GM in NS(*) 0.9% 100 ML ADDVANT BAG 100 ML IVPB SCH ×2 (06:00→09:00)
[2018-01-08] MEDS: LEVOTHYROXINE SOD 0.075 MG TAB PO SCH (06:00)
[2018-01-08 06:06] LABS: INR 1.7
[2018-01-08] MEDS: PATIENT'S OWN MED OS SCH ×2 (08:42→08:43)
[2018-01-08] MEDS ORDERED: CEFDINIR 300 MG CAP PO SCH (09:00)
[2018-01-08] MEDS: POLYETHYLENE GLYCOL 17 GM PKT PO SCH (09:27)
[2018-01-08] MEDS: SERTRALINE HCL 50 MG TAB PO SCH (09:28)
[2018-01-08] MEDS: DOCUSATE SODIUM 100 MG CAP PO SCH (09:28)
[2018-01-08] MEDS: valACYclovir HCL 500 MG TAB PO SCH (09:28)
[2018-01-08] MEDS: PANTOPRAZOLE SOD 40 MG TABEC PO SCH (09:28)
[2018-01-08 09:30] VITALS: BP 162/77
[2018-01-08] MEDS: METOPROLOL TART 50 MG TAB PO SCH (09:34)
[2018-01-08] MEDS ORDERED: PROMETHAZINE 25 MG/ML 1 ML AMP IVP PRN (10:15)
--- NOTE | 2018-01-08 10:45 | Hospitalist Progress Note ---
Subjective Progress Notes Subjective He has no complaints this morning. He did have some memory issues overnight, likely related to Levaquin which have resolved this morning. Patient Complains of: Cardiovascular: No: Chest Pain Respiratory: No: Shortness of Breath Physical Exam Vital Signs Date Time Temp Pulse Resp B/P (MAP) Pulse Ox O2 Delivery O2 Flow Rate FiO2 01/08/18 09:49 95 Nasal Cannula 01/08/18 09:42 5.0 01/08/18 09:30 98.8 97 24 162/77 (105) Intake and Output 01/08/18 06:58 Intake Total 1420 ml Output Total 1680 ml Balance -260 ml Intake Oral 1420 ml Output Urine Total 1680 ml General Appearance: Alert, Awake, No Acute Distress, Afebrile Neuro: No Gross deficits Cardiovascular: Regular Rate and Rhythm Respiratory: No Respiratory Distress, Clear to Auscultation GI: Soft and Non-Tender : Other (edema to scrotum decreasing) Psych: Alert & Oriented X3, Appropriate Mood & Affect Result Diagram: 01/08/1830 01/08/18529 Assessment and Plan Problems: (1) UTI (urinary tract infection) Status: Acute Assessment & Plan: He did have a fever and elevated WBC. His urine culture and blood cultures are growing Providencia rettgeri susceptible to ceftriaxone. His fever has resolved. His WBC count has been improving steadily, now within normal limits. He will be switched from Levaquin to Omnicef, since he had memory issues with Levaquin. He should continue Omnicef for 7 days. He is still rather weak awaiting placement in longer term rehab. (2) Septic shock Assessment & Plan: He did have an elevated lactate and required short term vasopressor support. His lactate normalized and he is maintaining his blood pressure independently. (3) Gross hematuria Status: Acute Assessment & Plan: Most likely due to trauma related to UTI/cath change and exacerbated by the anticoagulation for his chronic a-fib. He had irrigating cath in place per Dr. Martinez's recommendation. He was given FFP and vitamin K for reversal. Dr. Martinez has been following. We have now resumed his warfarin. (4) Scrotal edema Status: Acute Assessment & Plan: He likely had some bleeding into the scrotum, per Dr. Martinez. It has stabilized and the size is slowly decreasing. (5) COPD (chronic obstructive pulmonary disease) Status: Chronic Assessment & Plan: Continue oxygen supplementation and nebulizer therapy. (6) Atrial fibrillation Status: Chronic Assessment & Plan: He is on chronic treatment with metoprolol and warfarin. He is currently in sinus rhythm. Warfarin resumed after reversal for the hematuria. (7) Hypothyroidism Status: Chronic Assessment & Plan: Continue his L-thyroxine 75mcg PO daily. His TSH is normal. (8) Chronic kidney disease, stage III (moderate) Onset Date: 01/08/2014 Status: Chronic (9) ARF (acute renal failure) Status: Resolved Assessment & Plan: Improved. (10) Anemia Onset Date: 02/05/2014 Status: Acute Assessment & Plan: Most likely due to blood loss. Slightly improved. Monitor. Exam Sepsis Risk: No Definite Risk Problem Qualifiers (1) UTI (urinary tract infection): Hematuria presence: with hematuria SYLVESTER ZHANG [employer] Jan 08, 2018 10:45
[2018-01-08] MEDS: ALBUTEROL/IPRATROPIUM 3 ML NEB NEB SCH (11:05)
[2018-01-08] MEDS: WARFARIN SOD 5 MG TAB PO SCH (12:28)
[2018-01-08 12:32] VITALS: BP 163/82
[2018-01-08] MEDS ORDERED: WARF2.5T11 PO (12:51)
[2018-01-08] MEDS ORDERED: CEF300 PO (12:51)
[2018-01-08] MEDS ORDERED: METO-253 PO (12:51)
[2018-01-08] MEDS ORDERED: WARF-1 PO (12:51)
[2018-01-08] MEDS ORDERED: LOR5/325 PO (12:51)
--- NOTE | 2018-01-08 12:57 | Hospitalist Depart ---
Discharge Summary Reason for Hosp/Final Diag: (1) UTI (urinary tract infection) Status: Acute Hospital Course & Plan: He did have a fever and elevated WBC. His urine culture and blood cultures are growing Providencia rettgeri susceptible to ceftriaxone. His fever has resolved. His WBC count has been improving steadi ly, now within normal limits. He will be switched from Levaquin to Omnicef, since he had memory issues with Levaquin. He should continue Omnicef for 7 days. He will be transferred to the [facility] for further care. (2) Septic shock Hospital Course & Plan: He did have an elevated lactate and required short term vasopressor support. His lactate normalized and he is maintaining his blood pressure independently. (3) Gross hematuria Status: Acute Hospital Course & Plan: Most likely due to trauma related to UTI/cath change and exacerbated by the anticoagulation for his chronic a-fib. He had irrigating cath in place per Dr. Brown's recommendation. He was given FFP and vitamin K for reversal. Dr. Brown has been following. We have now resumed his warfarin. (4) Scrotal edema Status: Acute Hospital Course & Plan: He likely had some bleeding into the scrotum, per Dr. Brown. It has stabilized and the size is slowly decreasing. (5) COPD (chronic obstructive pulmonary disease) Status: Chronic Hospital Course & Plan: Continue oxygen supplementation and nebulizer therapy. (6) Atrial fibrillation Status: Chronic Hospital Course & Plan: He is on chronic treatment with metoprolol and warfarin. He is currently in sinus rhythm. Warfarin resumed after reversal for the hematuria. (7) Hypothyroidism Status: Chronic Hospital Course & Plan: Continue his L-thyroxine 75mcg PO daily. His TSH is normal. (8) Chronic kidney disease, stage III (moderate) Onset Date: 01/08/2014 Status: Chronic (9) ARF (acute renal failure) Status: Resolved Hospital Course & Plan: Improved. (10) Anemia Onset Date: 02/05/2014 Status: Acute Hospital Course & Plan: Most likely due to blood loss. Slightly improved. He wi ll follow up with PCP for blood draw. Departure Latest Vital Signs Vital Signs 01/08/18 01/08/18 01/08/18 09:30 11:09 12:32 Temp 98.8 Pulse 97 Resp 16 B/P (MAP) 163/82 (109) Pulse Ox 87 Weight (Pounds): 233 Weight (Ounces): 1.0 Result Diagram: 01/08/1852901/08/18529 Condition: Improved Discharge: Halfway PT/OT Follow Up For: PT For Strengthening, OT For ADL's, PT Evaluation and Treat, ST Evaluation and Treat Discharge Instructions Home Meds Active Scripts Metoprolol Tartrate (METOPROLOL TARTRATE) 50 Mg Tab, 50 MG PO BID, #60 TAB Prov:SYLVESTER ZHANG [facility] 01/08/18 Hydrocodone Bit/Acetaminophen (HYDROCODON-ACETAMINOPHEN 5-325) 1 Each Tablet, 1 EACH PO Q6H PRN for PAIN, #20 TAB Prov:SYLVESTER ZHANG [facility] 01/08/18 Warfarin Sodium (WARFARIN SODIUM) 2.5 Mg Tablet, 2.5 MG PO SuWe@1300, #15 TAB Prov:SYLVESTER ZHANG [facility] 01/08/18 Warfarin Sodium (COUMADIN) 5 Mg Tablet, 5 MG PO MoTuThFrSa@1300, #30 TAB Prov:SYLVESTER ZHANG [facility] 01/08/18 Cefdinir 300 Mg Cap (OMNICEF 300 MG CAP (OR EQUIV)) 300 Mg Cap, 300 MG PO BID, #14 CAP Prov:SYLVESTER ZHANG [facility] 01/08/18 Ropinirole Hcl (ROPINIROLE HCL) 0.5 Mg Tablet, 0.5 MG PO HS, #90 TAB 3 Refills Prov:ZEESHAN ANDREWS MD 01/01/18 Sertraline Hcl (SERTRALINE HCL) 50 Mg Tablet, 1 TAB PO QDAY, #90 TAB 1 Refill Prov:ZEESHAN ANDREWS MD 09/15/17 Albuterol Sulfate (VENTOLIN HFA) 18 Gm Inh, 2 PUFF INH Q6H PRN for SHORTNESS OF BREATH, #1 INH 4 Refills Prov:ZEESHAN ANDREWS MD 08/04/17 Omeprazole (OMEPRAZOLE) 20 Mg Capsule.dr, 1 CAP PO QDAY, #90 CAP 4 Refills Prov:ZEESHAN ANDREWS MD 08/03/17 Tamsulosin Hcl (TAMSULOSIN HCL) 0.4 Mg Cap.er.24h, 1 CAP PO QHS, #90 CAP 3 Refills Prov:ZEESHAN ANDREWS MD 06/29/17 Valacyclovir Hcl (VALACYCLOVIR) 500 Mg Tablet, 500 MG PO QAM, #90 TAB 4 Refills Prov:ZEESHAN ANDREWS MD 05/16/17 Nystatin 100,000 Unit/Gm Top Powder (NYSTATIN 100,000 UNIT/GM TOP POWDER) 15 Gm Powder, 1 RICCI TP BID, #60 G 2 Refills Prov:ZEESHAN ANDREWS MD 01/18/17 Oxygen (OXYGEN) Inha, 1.5-3 L INH cont, #0 L Prov:MARK SIMPSON MD 09/14/15 Reported Medications Eye Lubricant Combination No.1 (FRESHKOTE) 15 Ml Drops, 1 GTT OS QID 01/06/18 Ascorbic Acid (VITAMIN C) 500 Mg Tablet, 500 MG PO QDAY, TAB 01/03/18 [calazime cream] No Conflict Check, TOP QDAY 01/03/18 Latanoprost (TRAVATAN Z) 2.5 Ml Soln, 1 DROP OS QHS 01/03/18 Loteprednol Etabonate (ALREX) 5 Ml Drops.susp, 1 DROP OS BID 01/03/18 Levothyroxine Sodium (LEVOTHYROXINE SODIUM) 75 Mcg Tablet, 1 TAB PO QPM for 90 Days, TAB 01/03/18 Polyethylene Glycol 8000 (POLYETHYLENE GLYCOL) 500 Gm Powder, 8.5 GM PO MON, MON, Mon01/04/16 Discontinued Reported Medications Warfarin Sodium (WARFARIN SODIUM) 5 Mg Tablet, 5 MG PO DIRECTED, TAB Pt. dose is 5mg every Mon, Mon, and Monday. 01/03/18 Warfarin Sodium (WARFARIN SODIUM) 2.5 Mg Tablet, 2.5 MG PO DIRECTED Pt. dose is 2.5mg on Mon, , , and 01/03/18 Loteprednol Etabonate (LOTEMAX) 5 Gm Gel..gram., 1 DROP OS Q4H 01/03/18 [calazime cream] No Conflict Check 01/03/18 [calazime ] No Conflict Check 01/03/18 Cefuroxime Axetil (CEFUROXIME) 250 Mg Tablet, 250 MG PO BID for 7 Days, #14 TAB 0 Refills 10/05/17 [Alarex] No Conflict Check 10/01/17 Dextran 70/Hypromellose (ARTIFICIAL TEARS) 1 Each Droperette, 1 EACH OP BID 01/04/16 Discontinued Scripts Metoprolol Tartrate (METOPROLOL TARTRATE) 25 Mg Tablet, 1 TAB PO QHS, #90 TAB 3 Refills Prov:ZEESHAN ANDREWS MD 11/13/17 Warfarin Sodium (COUMADIN) 5 Mg Tablet, 5 MG PO M,,,,Sa, #90 TAB 1 Refill Prov:ZEESHAN ANDREWS MD 01/01/18 Warfarin Sodium (COUMADIN) 2.5 Mg Tablet, 2.5 MG PO Mon and Mon, #90 TAB 1 Refill Prov:ZEESHAN ANDREWS MD 01/01/18 Cefuroxime Axetil (CEFUROXIME) 250 Mg Tablet, 250 MG PO BID for INFECTION, #14 TAB Prov:KEITH BERG DO 10/04/17 Levothyroxine Sodium (LEVOTHYROXINE SODIUM) 75 Mcg Tablet, 1 TAB PO QDAY, #90 TAB 4 Refills Prov:ZEESHAN ANDREWS MD 03/09/17 Diet: Regular Activity: As Tolerated, With Walker Special Instructions: Follow up with PCP in 1-2 weeks. Follow up with Dr. Brown regarding Berkowitz Catheter. Copies to: LUCY BROWN MD; ZEESHAN ANDREWS MD ; Venous Thromboembolism Antithrombotics Is Pt On Any Antithrombotics?: Yes (but warfarin held due to gross hematuria) Problem Qualifiers (1) UTI (urinary tract infection): Hematuria presence: with hematuria SYLVESTER ZHANG [employer] Jan 08, 2018 12:57
[2018-01-08] MEDS ORDERED: [UNRECOGNIZED DRUG - OTHER] OP SCH (13:00)
[2018-01-08] MEDS ORDERED: TRAVOPROST OS SCH (21:00)
[2018-01-09] MEDS ORDERED: LOTEPREDNOL ETABONATE 5 ML BOTTLE OS SCH (09:00)
== END 2018-01-08 15:56 | DRG 698 ==
LOC: ER 17:10 → MED 21:50 → ICU 01-01 10:40 → MED 01-03 15:30
PROVIDERS: ADMIT Internal Medicine; ATTEND Internal Medicine
PROC: 05JY3ZZ Inspection of Upper Vein, Percutaneous Approach (ICD-10-PCS; principal; 2018-01-01)
PROC: B543ZZA Ultrasonography of Right Jugular Veins, Guidance (ICD-10-PCS; 2018-01-01)
PROC: 30233K1 Transfusion of Nonautologous Frozen Plasma into Peripheral Vein, Percutaneous Approach (ICD-10-PCS; 2018-01-01)
DX: T83.511A Infection and inflammatory reaction due to indwelling urethral catheter, initial encounter (principal); A41.59 Other Gram-negative sepsis; R65.21 Severe sepsis with septic shock; N17.9 Acute kidney failure, unspecified; D62 Acute posthemorrhagic anemia; N50.89 Other specified disorders of the male genital organs; J44.9 Chronic obstructive pulmonary disease, unspecified; I48.2 Chronic atrial fibrillation; E03.9 Hypothyroidism, unspecified; I12.9 Hypertensive chronic kidney disease with stage 1 through stage 4 chronic kidney disease, or unspecified chronic kidney disease; N18.3 Chronic kidney disease, stage 3 (moderate); B02.9 Zoster without complications; G25.81 Restless legs syndrome; G47.30 Sleep apnea, unspecified; T45.515A Adverse effect of anticoagulants, initial encounter; E78.5 Hyperlipidemia, unspecified; K21.9 Gastro-esophageal reflux disease without esophagitis; F32.9 Major depressive disorder, single episode, unspecified; R31.9 Hematuria, unspecified; Z79.01 Long term (current) use of anticoagulants; Z86.73 Personal history of transient ischemic attack (TIA), and cerebral infarction without residual deficits; Z91.81 History of falling; Z85.828 Personal history of other malignant neoplasm of skin; Z87.891 Personal history of nicotine dependence
CPT/HCPCS: 36415; 36430; 36569; 71045; 76870; 81001; 82040; 82247; 82310; 82374; 82435; 82565; 82947; 83605; 84075; 84132; 84155; 84295; 84443; 84450; 84460; 84520; 85025; 85610; 86850; 86900; 86901; 86920; 87040; 87088; 87186; 94640; 97162; 97166; J0696; J1720; J2270; J3430; J3490; J7030; J7040; J7050; J7060; P9016; P9017